=== PATIENT | male | born 1945 | race Asian ===

== ENCOUNTER 2018-10-13 11:08 | Inpatient (IN) | payer BC, MEDICARE ==
[2018-10-13] VITALS (23 sets, daily range): BP systolic 90–141; BP diastolic 57–82; PULSE 60–77; RESP 12–19; Ht 167.6 cm; Wt 72.0 kg
[~2018-10-13] VITALS: Ht 167.6 cm; Wt 72.0 kg
[~2018-10-13 11:08] MED LIST: ETOMIDATE 20 MG INJ ONE
[2018-10-13] MEDS ORDERED: NITROGLYCERIN 50 MG/D5W (PMX) 250 ML ONE (11:10)
[2018-10-13] MEDS ORDERED: NITROGLYCERIN (SL) 0.4 MG TAB ONE (11:15)
[2018-10-13] MEDS ORDERED: PROPOFOL 100 ML ONE (11:27)
[2018-10-13] MEDS ORDERED: NITROGLYCERIN 50 MG/D5W (PMX) 250 ML IV STA (11:29)
[2018-10-13] MEDS ORDERED: PROPOFOL 100 ML IV STA (11:29)
[2018-10-13] MEDS ORDERED: ALBUTEROL 0.5% (NEB) 2.5 MG/0.5 ML AMP INH STA (11:29)
[2018-10-13] MEDS ORDERED: ETOMIDATE 20 MG INJ IV STA (11:29)
[2018-10-13] MEDS ORDERED: ROCURONIUM 50 MG INJ IV STA (11:29)
[2018-10-13] MEDS ORDERED: NITROGLYCERIN (SL) 0.4 MG TAB SL PRN (11:30)
[2018-10-13] MEDS ORDERED: PENT400T9 PO (11:51)
[2018-10-13] MEDS ORDERED: FURO40TA4 PO (11:51)
[2018-10-13] MEDS ORDERED: ATOR-2 PO (11:52)
[2018-10-13] MEDS ORDERED: CARV6.2579 PO (11:52)
[2018-10-13] MEDS ORDERED: ALBU8.5H8 INH (11:52)
[2018-10-13] MEDS ORDERED: CLOP75TA27 PO (11:53)
[2018-10-13] MEDS ORDERED: CILO100T PO (11:53)
[2018-10-13] MEDS ORDERED: ALLO100T PO (11:54)
[2018-10-13] MEDS ORDERED: POTA10TA37 PO (11:54)
[2018-10-13] MEDS ORDERED: LEVO88TA42 PO (11:55)
[2018-10-13] MEDS ORDERED: TAMS0.4C2 PO (11:55)
[2018-10-13] MEDS ORDERED: PIPER-TAZO 3.375 GM IV (PMX) 100 ML IVPB ONE (12:00)
[2018-10-13] MEDS ORDERED: VANCOMYCIN 1 GM (PMX) 250 ML IVPB ONE (12:00)
[2018-10-13] MEDS ORDERED: SOD CHLORIDE 0.9% 2,250 ML IV ONE (12:00)
[2018-10-13] MEDS ORDERED: LIDOCAINE 1% (MPF) 5 ML VIAL SC ONE (12:30)
--- NOTE | 2018-10-13 13:02 | ERD ---
ER Documentation Chief Complaint Chief Complaint BIB RA FOR EVAL OF RESPIRATORY DISTRESS. CPAP PLACED BY EMS HPI 73-year-old male presents the emergency department with shortness of breath. Patient arrives in critical condition unable to provide any significant history. History is initially available for the paramedics and later in the emergency department course from the patient's family. According to the family, patient was in his usual state of health which is to say that he has chronic congestive heart failure. He has been placed on "water pills" and has been apparently been doing well up until the last 24-48 hours. H e became acutely short of breath this morning. He reported no chest pain or fevers or hemoptysis or cough. The paramedics were called after he continued to be short of breath. 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 Pre-hospital vital signs were reviewed. Pre-hospital diagnostic tests were reviewed. Method Consultant's indicated that he was significantly hypoxemic. He required albuterol for wheezing and then BiPAP and was brought to the emergency department for evaluation. Upon arrival, patient is critically ill and unable to provide any further history. ROS All systems reviewed and are negative except as per history of present illness. Medications Home Meds Reported Medications Tamsulosin Hcl* (Tamsulosin Hcl*) 0.4 Mg Cap.er.24h, 0.4 MG PO HS, CAP 10/13/18 Levothyroxine Sodium* (Levoxyl*) 88 Mcg Tablet, 88 MCG PO BEFORE BREAKFAST, #30 TAB 10/13/18 Potassium Chloride* (K-Dur*) 10 Meq Tab.prt.sr, 10 MEQ PO DAILY, TAB 10/13/18 Allopurinol* (Allopurinol*) 100 Mg Tablet, 100 MG PO DAILY, TAB 10/13/18 Clopidogrel Bisulfate (Clopidogrel) 75 Mg Tablet, 75 MG PO DAILY, #30 TAB 10/13/18 Cilostazol* (Cilostazol*) 100 Mg Tablet, 100 MG PO BID, TAB 10/13/18 Atorvastatin* (Atorvastatin*) 80 Mg Tablet, 80 MG PO QHS, #30 TAB 10/13/18 Carvedilol* (Carvedilol*) 6.25 Mg Tablet, 6.25 MG PO BID, #60 TAB 10/13/18 Albuterol Sulfate* (Proair HFA*) 8.5 Gm Hfa.aer.ad, 2 PUFF INH Q6H PRN for WHEEZING AND SOB, #1 INHALER 10/13/18 Furosemide* (Furosemide*) 40 Mg Tablet, 40 MG PO DAILY, TAB 10/13/18 Pentoxifylline* (Pentoxifylline*) 400 Mg Tablet.sa, 400 MG PO TID, TAB 10/13/18 Allergies Allergies: Coded Allergies: Unknown: Unable to obtain (Unverified , 10/13/18) PMhx/Soc Anesthesia Reaction: No Hx Respiratory Disorders: Yes (COPD) Hx Cardiac Disorders: Yes (CHF ? on Lasix) Hx Psychiatric Problems: No Hx Miscellaneous Medical Probl: No Hx Tobacco Use: Yes Smoking Status: Current every day smoker FmHx Supportive family at the bedside. Otherwise noncontributory for chief complaint Physical Exam Vitals Vital Signs Date Temp Pulse Resp B/P (MAP) Pulse Ox O2 O2 Flow FiO2 Time Delivery Rate 10/13/18 76 20 129/72 100 Mechanical 11:30 (91) Ventilator 10/13/18 94.3 89 25 180/100 11:10 (126) Physical Exam GENERAL: Critically ill male who arrives in respiratory failure HEENT: Pupils equal, round, and reactive to light. EOMI. There is no scleral icterus. NECK: C-spine is soft and supple, there is no meningismus. There is no cervical lymphadenopathy. JVD is appreciated LUNGS: Significantly decreased tidal volume. Wheezing bilaterally. There are rales bilaterally. Significant increased respiratory effort HEART: Regular rate and rhythm, no murmurs, clicks, rubs or gallops. ABDOMEN: Soft, non-tender, non-distended. There are bowel sounds in all four quadrants. No rebound or guarding. EXTREMITIES: 1+ edema bilaterally no cyanosis NEURO: The patient moves all four extremities with 5/5 strength. Cranial nerves II - XII are intact. Awake but confused and encephalopathic SKIN: There is no apparent rash or petechiae. Skin is mottled HEME/LYMPHATIC: There is no evidence of excessive bruising or lymphedema. PSYCHIATRIC: The patient does appear anxious Result Diagram: 10/13/18 1116 10/13/18 1116 Results 24 hrs Laboratory Tests Test 10/13/18 11:16 10/13/18 11:29 10/13/18 11:57 White Blood Count 10.5 10^3/ul Red Blood Count 4.73 10^6/ul Hemoglobin 14.8 g/dl Hematocrit 47.0 % Mean Corpuscular Volume 99.4 fl Mean Corpuscular 31.3 pg Hemoglobin Mean Corpuscular 31.5 g/dl Hemoglobin Concent Red Cell Distribution 14.2 % Width Platelet Count 204 10^3/UL Mean Platelet Volume 10.5 fl Immature Granulocytes % 0.500 % Neutrophils % 74.4 % Lymphocytes % 17.3 % Monocytes % 7.4 % Eosinophils % 0.1 % Basophils % 0.3 % Nucleated Red Blood Cells 0.0 /100WBC % Immature Granulocytes # 0.050 10^3/ul Neutrophils # 7.8 10^3/ul Lymphocytes # 1.8 10^3/ul Monocytes # 0.8 10^3/ul Eosinophils # 0.0 10^3/ul Basophils # 0.0 10^3/ul Nucleated Red Blood Cells 0.0 10^3/ul # Prothrombin Time 16.8 Sec Prothrombin Time Ratio 1.3 INR International 1.35 Normalized Ratio Activated 31.6 Sec Partial Thromboplast Time Sodium Level 136 mmol/L Potassium Level 5.8 mmol/L Chloride Level 100 mmol/L Carbon Dioxide Level 17 mmol/L Anion Gap 19 Blood Urea Nitrogen 53 mg/dl Creatinine 2.13 mg/dl Est Glomerular Filtrat mL/min Rate mL/min Glucose Level 76 mg/dl Calcium Level 9.9 mg/dl Total Bilirubin 0.6 mg/dl Direct Bilirubin 0.00 mg/dl Indirect Bilirubin 0.6 mg/dl Aspartate Amino 223 IU/L Transf (AST/SGOT) Alanine 99 IU/L Aminotransferase (ALT/SGPT ) Alkaline Phosphatase 67 IU/L Troponin I 0.104 ng/ml B-Type Natriuretic Peptide 14303 PG/ML Total Protein 8.9 g/dl Albumin 5.1 g/dl Globulin 3.80 g/dl Albumin/Globulin Ratio 1.34 Blood Gas Specimen Source Blood arterial Arterial Blood Date Drawn 10/13/2018 11:50:14 AM Arterial Blood pH 7.068 (Temp corrected) Arterial Blood pCO2 56.9 mmhg (Temp correct) Arterial Blood pO2 471.5 mmHG (Temp corrected) Arterial Blood HCO3 16.0 mmol/L Arterial Blood Base Excess -14.6 mmol/L Arterial Blood 99.6 mmHG Oxygen Saturation Tommy Test ACCEPTAB Arterial Blood Gas Right Radial Puncture Site Arterial 0.7 % Blood Carboxyhemoglobin Arterial Blood 0.3 % Methemoglobin Blood Gas A-a O2 184.6 mmHg Differential Oxyhemoglobin Percent 98.6 % Blood Gas Temperature 37.0 C Blood Gas Respiration Rate 14.0 Blood Gas Actual 14 Respiration Rate Blood Gas Modality VENT - AC FiO2 100.0 % Blood Gas Tidal Volume 450.0 mL Blood Gas Low PEEP Setting 0 cmH2O Blood Gas Critical Value Magalys PLUMMER MD Read Back Blood Gas Notified Whom NEELA Blood Gas Notified Time 10/13/2018 11:58:19 AM POC Venous Lactate 7.4 mmol/L Current Medications Medications Dose Sig/John Start Time Status Last (Trade) Ordered Route PRN Stop Time Admin Dose Reason Admin Propofol 100 ml @ ud STK-MED 10/13/18 DC ONCE .ROUTE 11:27 10/13/18 11:28 Rocuronium 70 mg ONCE STAT 10/13/18 DC 10/13/18 [place] IV 11:29 11:40 (Zemuron) 10/13/18 11:33 Etomidate 20 mg ONCE STAT 10/13/18 DC 10/13/18 (Amidate) IV 11:29 11:40 10/13/18 11:33 Propofol 100 ml @ ONCE STAT 10/13/18 10/13/18 2.1 mls/hr IV 11:29 12:23 10/15/18 11:06 Albuterol 5 mg ONCE STAT 10/13/18 DC 10/13/18 (Proventil INH 11:29 12:30 0.5% (Neb)) 10/13/18 11:33 1 tab Q5M UP TO 3 10/13/18 10/13/18 Nitroglycerin DOSES PRN 11:30 11:15 SL CHEST (Nitroglyceri PAIN n (Sl Tab) 0.4 Mg) 250 ml @ ONCE STAT 10/13/18 10/13/18 Nitroglycerin 12 mls/hr IV 11:29 11:46 / Dextrose 10/14/18 08:18 Sodium 2,250 ml @ BOLUS X1 10/13/18 10/13/18 Chloride 1,125 mls/hr ONCE IV 12:00 12:23 10/13/18 13:59 Piperacillin 100 ml @ ONCE ONCE 10/13/18 DC 10/13/18 Sod/ 200 mls/hr IVPB 12:00 12:26 Tazobactam 10/13/18 12:29 Sod Vancomycin 250 ml @ ONCE ONCE 10/13/18 HCl 125 mls/hr IVPB 12:00 10/13/18 13:59 Lidocaine 5 ml ONCE ONCE 10/13/18 DC (Xylocaine SC 12:30 1% (Mpf)) 10/13/18 12:31 Procedures/MDM Patient was taken to a room, seen and evaluated. Comfort measures were initiated. BiPAP was continued from the paramedics and continued with preparation for intubation. Diagnostic tests were ordered and reviewed. Endotracheal Intubation by me: Pre assessment performed. See preceding note for details. Pre-oxygenation performed with 100% oxygen RSI: Performed w/o complication or hypoxic events. Medications as ordered. Intubation confirmed by colorimetric CO2, equal breath sounds, quiet over the stomach. Chest X-ray 1V Interpreted by me: ETT in appropriate position. Normal soft tissue, No pneumothorax. 3 LEAD RHYTHM STRIP: Normal sinus rhythm without ectopy Method Consultant EK lead EKG reviewed by myself: Normal Sinus Rhythm Left axis deviation, right bundle branch block No ST elevation, depression, or T wave inversion Impression: Abnormal, nonspecific EKG EKG repeated upon arrival: Normal sinus rhythm Left axis deviation Right bundle branch block Nonspecific ST and T wave changes without ST elevation Impression: Abnormal, nonspecific EKG RADIOLOGY: Reviewed with the radiologist CONSULTATION: Hospitalist was notified for admission REEVALUATION: After intubation, patient has stabilized from a respiratory standpoint. His heart rate improved. Saturations remained improved. Diagnostic tests were appreciated. A Baker catheter was placed and he drained urine. MEDICAL DECISION MAKIN-year-old male presents the emergency department in respiratory failure. Diagnostic evaluation seems to indicate a mixed picture of congestive heart failure as well as likely COPD. He has a mixed hypercarbia and a respiratory as well as metabolic acidosis. He may be septic with a severely elevated lactate and given his mottled appearance, he clearly presents not perfusing well. His shock seems to be multifactorial and may be related to his cardiopulmonary status and/or sepsis. He is required aggressive measures including intubation and I have continued IV fluids as well as empiric antibiotics for the possibility of sepsis/pneumonia. He has an elevated BNP and likely has some congestive heart failure, but given his hypoperfusion, I feel the fluids are appropriate. Patient will be admitted to the hospital for further observation, monitoring, IV fluids, empiric antibiotics as well as significant supportive care. CRITICAL CARE: Time:>35 minutes Patient has a significant chance of clinical deterioration Treatments/Evaluations: Close monitoring and treatment of unstable vital signs, cardiorespiratory, and neurologic status, while maintaining tight balance of fluid, respiratory, and cardiac interventions. Departure Diagnosis: Primary Impression: Respiratory failure Additional Impressions: Congestive heart failure Renal failure Shock Condition: Critical KERRIE PLUMMER Oct 13, 2018 13:02
[2018-10-13] MEDS ORDERED: SODIUM POLYSTYRENE 15 GM KIT (POWDER + SORBITOL) NGT ONE ×2 (15:00→17:00)
[2018-10-13] MEDS ORDERED: ONDANSETRON 4 MG INJ IV PRN (15:00)
[2018-10-13] MEDS ORDERED: NACL 0.9% 3 ML SYG IV SCH (15:00)
[2018-10-13] MEDS ORDERED: VANCOMYCIN IV PER PHARMACY XX SCH (15:30)
--- NOTE | 2018-10-13 15:36 | HP ---
Date/Time of Note Date/Time of Note DATE: 10/13/18 TIME: 14:49 Assessment/Plan VTE Prophylaxis SCD applied (from Nsg): Yes Pharmacological prophylaxis: heparin Lines/Catheters IV Catheter Type (from Nrsg): Saline Lock Assessment/Plan Assessment/Plan 73 yo man with CHF, history of AR, PAD, presents with acute respiratory failure #Acute respiratory failure - Acute onset over only a few hours. Associated with pulmonary edema but otherwise not much fluid overload. - Differential: PE, pneumonia, AR, CHF exacerbation, new COPD PE: Currently with NOHEMY so no CTPA. He has no contraindications to anticoagulation. Will check D-dimer, if elevated will consider heparin gtt. Sepsis: No lobar infiltrate on CXR. CT pending. Will empirically continue ACS: Initial trop negative (0.1), EKG with right bundle. Dr. Bennett consulted from [facility] (Patient's practical nurse clinical coordinator is Dr. Francisco Vernon). Will trend trops. Will continue ASA/plavix - Overall appears about euvolemic. Will hold off on further diuresis or IV fluids. - Pending CT. - Dr. Oleary from pulmonary consulted. #NOHEMY #CKD #Hyperkalemia - Current Cr 2.13, baseline 1.8 in 2017. May just be progression of CKD - Kayexalate for hyper K - Dr. Hunter consulted #PAD - Continue home cilostazol and pentoxifylline - No evidence of acute limb ischemia DVT: heparin GI: protonix Result Diagram: 10/13/18 1116 10/13/18 1116 HPI/ROS Admit Date/Time Admit Date/Time October 13, 2018 Hx of Present Illness Mr. Griggs is a 73 yo man with history of AR, CHF, and PAD BIBA from home for dyspnea. Patient intubated and sedated on my exam; history per and daughter. Apparently he was in his usual state of health until last night. He developed profuse sweating and had three episodes of diarrhea. But no shortness of breath, no orthopnea; was lying flat. Suddenly at 10:30 this morning he told his "I can't breathe", although he didn't appear to be in respiratory distress at the time. She asked about chest pain and he denied it. Also no cough. Ambulance was called and he was brought to the ED. At baseline patient is functional, ambulatory. He'd gone to a doctors appointm ent the day prior; no known changes to medications and no procedures done. History notable for AR about 3 years ago, had PCI with 2 or 3 stents placed. No open heart surgery. He also has severe peripheral arterial disease with a R femoral stent placed 2 months ago. He arrived to the ED on BiPAP in respiratory distress, afebrile, HTNsive to 180/100, P 70s-80s. Soon after arrival required intubation. CXR showed diffuse infiltrates or pulmonary edema. Labs notable for Cr 2.13 (no known baseline), K 5.8, lact 7.4, trop 0.104. ROS Subjective hx not possible: pt critical PMH/Family/Social Past Medical History PAD History of AR requiring stents 3 years ago CHF recently started on Lasix 3 weeks ago Hypothyroid Medications Current Medications Propofol 100 ml @ 2.1 mls/hr ONCE STAT IV Last administered on 10/13/18at 12:23; Admin Dose 4.2 MLS/HR; Start 10/13/18 at 11:29; Stop 10/15/18 at 11:06 Nitroglycerin (Nitroglycerin (Sl Tab) 0.4 Mg) 1 tab Q5M UP TO 3 DOSES PRN SL CHEST PAIN Last administered on 10/13/18at 11:15; Admin Dose 1 TAB; Start 10/13/18 at 11:30 Nitroglycerin/ Dextrose 250 ml @ 12 mls/hr ONCE STAT IV Last administered on 10/13/18at 11:46; Admin Dose 1.5 MLS/HR; Start 10/13/18 at 11:29; Stop 10/14/18 at 08:18 IV Flush (NS 3 ml) 3 ml PER PROTOCOL IV ; Start 10/13/18 at 15:00; Status UNV Ondansetron HCl (Zofran Inj) 4 mg Q6H PRN IV NAUSEA/VOMITING; Start 10/13/18 at 15:00; Status UNV Pantoprazole (Protonix Iv) 40 mg DAILY@06 IV ; Start 10/14/18 at 06:00; Status UNV Coded Allergies: Unknown: Unable to obtain (Unverified , 10/13/18) Past Surgical History R leg arterial stent 2 months ago Social History Alcohol Use: occasionally Smoking Status: Current every day smoker (rare, 1 pack every 2 weeks) Drug Use: none Exam/Review of Systems Vital Signs Vitals Vital Signs Date Temp Pulse Resp B/P (MAP) Pulse Ox O2 O2 Flow FiO2 Time Delivery Rate 10/13/18 95.0 65 12 127/77 100 Mechanical 14:00 (94) Ventilator 10/13/18 40 13:27 Exam Exam Gen: Elderly man well developed intubated, sedated. Eyes: Normal pupils nonreactive to light, no icterus HEENT: ET tube in place, moist mucous membranes Neck: JVP visible about 6-7 cm above sternal notch Card: Distant heart sounds. Regular rate and rhythm, cannot appreciate murmurs Pulm: Mechanical breath sounds throughout, no crackles or rales. Abd: Soft, nondistended. Ext: No cyanosis/clubbing/edema. Bilateral feet with <2 sec cap refill but poor peripheral pulses. Skin: warm, dry. PETER GLEASON MD Oct 13, 2018 15:04
[2018-10-13] MEDS: HEPARIN 5,000 UNIT/1 ML VIAL SC SCH ×2 (16:49→22:18)
[2018-10-13] MEDS ORDERED: INSULIN REGULAR, HUMAN 100 UNIT/1 ML 3ML VIAL IVP STA (17:06)
[2018-10-13] MEDS ORDERED: FUROSEMIDE 40 MG INJ IV ONE (17:30)
[2018-10-13] MEDS: PIPER-TAZO 2.25 GM (PMX) 50 ML IVPB SCH (17:30)
[2018-10-13] MEDS: PROPOFOL 100 ML IV SCH (18:24)
[2018-10-13] MEDS: ATORVASTATIN 80 MG TAB PO SCH (20:55)
[2018-10-13] MEDS: TAMSULOSIN (SR) 0.4 MG CAP PO SCH (20:55)
[2018-10-13] MEDS: CILOSTAZOL 100 MG TAB PO SCH (20:55)
[2018-10-13] MEDS ORDERED: PENTOXIFYLLINE (SR) 400 MG TAB PO SCH (21:00)
[2018-10-14] VITALS (43 sets, daily range): BP systolic 89–138; BP diastolic 57–86; PULSE 59–84; RESP 12–21
[2018-10-14] MEDS: PIPER-TAZO 2.25 GM (PMX) 50 ML IVPB SCH ×5 (00:59→23:33)
[2018-10-14] MEDS: PROPOFOL 100 ML IV SCH ×2 (00:59→10:33)
[2018-10-14] MEDS ORDERED: SOD CHLORIDE 0.9% 500 ML IV ONE (03:30)
[2018-10-14] MEDS ORDERED: SOD CHLORIDE 0.9% 1,000 ML IV ONE (05:00)
[2018-10-14] MEDS: PANTOPRAZOLE 40 MG INJ IV SCH (05:11)
[2018-10-14] MEDS: HEPARIN 5,000 UNIT/1 ML VIAL SC SCH ×2 (05:14→21:21)
[2018-10-14] MEDS ORDERED: VANCOMYCIN 1 GM 250 ML IVPB SCH (06:00)
[2018-10-14] MEDS ORDERED: ALBUTEROL 0.083% (NEB) 2.5 MG/3 ML AMP HHN STA (06:06)
[2018-10-14] MEDS ORDERED: INSULIN REGULAR, HUMAN 100 UNIT/1 ML 3ML VIAL IVP ONE (06:12)
[2018-10-14] MEDS: LEVOTHYROXINE 88 MCG TAB PO SCH (06:17)
[2018-10-14] MEDS ORDERED: SODIUM POLYSTYRENE 15 GM KIT (POWDER + SORBITOL) NGT ONE (06:30)
[2018-10-14] MEDS ORDERED: DEXTROSE 50% 50 ML SYRINGE IV PRN (06:30)
--- NOTE | 2018-10-14 06:30 | CONS ---
Consultation Date/Type/Reason Admit Date/Time October 13, 2018 Date/Time of Note DATE: 10/14/18 TIME: 06:28 Hx of Present Illness full note dictated 1. antionette- oliguric. likely atn. complicated by hyperkalemia. fu urine studies and ultrasound. will initiate dialysis for potassium while we continue to investigate. Past Medical History Home Meds Reported Medications Tamsulosin Hcl* (Tamsulosin Hcl*) 0.4 Mg Cap.er.24h, 0.4 MG PO HS, CAP 10/13/18 Levothyroxine Sodium* (Levoxyl*) 88 Mcg Tablet, 88 MCG PO BEFORE BREAKFAST, #30 TAB 10/13/18 Potassium Chloride* (K-Dur*) 10 Meq Tab.prt.sr, 10 MEQ PO DAILY, TAB 10/13/18 Allopurinol* (Allopurinol*) 100 Mg Tablet, 100 MG PO DAILY, TAB 10/13/18 Clopidogrel Bisulfate (Clopidogrel) 75 Mg Tablet, 75 MG PO DAILY, #30 TAB 10/13/18 Cilostazol* (Cilostazol*) 100 Mg Tablet, 100 MG PO BID, TAB 10/13/18 Atorvastatin* (Atorvastatin*) 80 Mg Tablet, 80 MG PO QHS, #30 TAB 10/13/18 Carvedilol* (Carvedilol*) 6.25 Mg Tablet, 6.25 MG PO BID, #60 TAB 10/13/18 Albuterol Sulfate* (Proair HFA*) 8.5 Gm Hfa.aer.ad, 2 PUFF INH Q6H PRN for WHEEZING AND SOB, #1 INHALER 10/13/18 Furosemide* (Furosemide*) 40 Mg Tablet, 40 MG PO DAILY, TAB 10/13/18 Pentoxifylline* (Pentoxifylline*) 400 Mg Tablet.sa, 400 MG PO TID, TAB 10/13/18 Medications Current Medications Nitroglycerin (Nitroglycerin (Sl Tab) 0.4 Mg) 1 tab Q5M UP TO 3 DOSES PRN SL CHEST PAIN Last administered on 10/13/18at 11:15; Admin Dose 1 TAB; Start 10/13/18 at 11:30 Nitroglycerin/ Dextrose 250 ml @ 12 mls/hr ONCE STAT IV Last administered on 10/13/18at 11:46; Admin Dose 1.5 MLS/HR; Start 10/13/18 at 11:29; Stop 10/14/18 at 08:18 IV Flush (NS 3 ml) 3 ml PER PROTOCOL IV ; Start 10/13/18 at 15:00 Ondansetron HCl (Zofran Inj) 4 mg Q6H PRN IV NAUSEA/VOMITING; Start 10/13/18 at 15:00 Pantoprazole (Protonix Iv) 40 mg DAILY@06 IV Last administered on 10/14/18at 05:11; Admin Dose 40 MG; Start 10/14/18 at 06:00 Vancomycin HCl (Vanco Iv Per Pharmacy) VANCOMYCIN PER PHARMACY PER PROTOCOL XX ; Start 10/13/18 at 15:30 Piperacillin Sod/ Tazobactam Sod 50 ml @ 100 mls/hr Q6 IVPB Last administered on 10/14/18 05:11; Admin Dose 100 MLS/HR; Start 10/13/18 at 18:00 Atorvastatin Calcium (Lipitor) 80 mg QHS PO Last administered on 10/13/18 20:5 5; Admin Dose 80 MG; Start 10/13/18 at 21:00 Carvedilol (Coreg) 6.25 mg BID PO Last administered on 10/13/18 20:55; Admin Dose 6.25 MG; Start 10/13/18 at 21:00 Cilostazol (Pletal) 100 mg BID PO Last administered on 10/13/18 20:55; Admin Dose 100 MG; Start 10/13/18 at 21:00 Clopidogrel Bisulfate (plaVIX) 75 mg DAILY PO ; Start 10/14/18 at 09:00 Levothyroxine Sodium (Synthroid) 88 mcg BEFORE BREAKFAST PO Last administered on 10/14/18at 06:17; Admin Dose 88 MCG; Start 10/14/18 at 07:00 Pentoxifylline (Trental) 400 mg TID PO ; Start 10/13/18 at 21:00; Status Hold Tamsulosin HCl (Flomax) 0.4 mg HS PO Last administered on 10/13/18 20:55; Admin Dose 0.4 MG; Start 10/13/18 at 21:00 Heparin Sodium (Porcine) (Heparin (5000 Units/1ml)) 5,000 unit Q8 SC Last administered on 10/14/18at 05:14; Admin Dose 5,000 UNIT; Start 10/13/18 at 16:00 Vancomycin HCl 250 ml @ 125 mls/hr Q24H IVPB Last administered on 10/14/18at 06:17; Admin Dose 125 MLS/HR; Start 10/14/18 at 06:00 Dextrose (D50w Syringe) ONCE PRN IV DECREASED GLUCOSE; Start 10/13/18 at 17:30; Stop 10/14/18 at 17:29 Propofol 100 ml @ 2.16 mls/hr Q12H IV Last administered on 10/14/18at 00:59; Admin Dose 15.12 MLS/HR; Start 10/13/18 at 18:00 Sodium Polystyrene Sulfonate (Kayexelate 15 Gm Kit (Powder+Sorbitol)) 60 gm ONCE ONCE NGT Last administered on 10/14/18at 06:20; Admin Dose 60 GM; Start 10/14/18 at 06:30; Stop 10/14/18 at 06:31 Dextrose (D50w Syringe) ONCE PRN IV DECREASED GLUCOSE; Start 10/14/18 at 06:30; Stop 10/14/18 at 08:30 Allergies: Coded Allergies: Unknown: Unable to obtain (Unverified , 10/13/18) Social History Alcohol Use: occasionally Smoking Status: Current every day smoker Drug Use: none Exam/Review of Systems Exam Vitals Vital Signs Date Temp Pulse Resp B/P (MAP) Pulse Ox O2 O2 Flow FiO2 Time Delivery Rate 10/14/18 66 17 100 30 05:00 10/14/18 97.8 106/65 Mechanical 04:00 (79) Ventilator Intake and Output 10/13/18 10/13/18 10/14/18 1414:59 22:59 06:59 IntakeIntake Total 1100 ml 239.88 ml 712.32 ml OutputOutput Total 280 ml 110 ml BalanceBalance 1100 ml -40.12 ml 602.32 ml Results Result Diagram: 10/14/1844710/14/18447 Results 24hrs Laboratory Tests Test 10/13/18 11:16 10/13/18 11:29 10/13/18 11:57 10/13/18 12:00 White Blood Count 10.5 Red Blood Count 4.73 Hemoglobin 14.8 Hematocrit 47.0 Mean Corpuscular 99.4 Volume Mean Corpuscular 31.3 Hemoglobin Mean Corpuscular 31.5 L Hemoglobin Concen t Red Cell 14.2 Distribution Width Platelet Count 204 Mean Platelet 10.5 H Volume Immature 0.500 H Granulocytes % Neutrophils % 74.4 Lymphocytes % 17.3 Monocytes % 7.4 Eosinophils % 0.1 Basophils % 0.3 Nucleated Red 0.0 Blood Cells % Immature 0.050 H Granulocytes # Neutrophils # 7.8 H Lymphocytes # 1.8 Monocytes # 0.8 Eosinophils # 0.0 Basophils # 0.0 Nucleated Red 0.0 Blood Cells # Prothrombin Time 16.8 H Prothrombin Time 1.3 Ratio INR International 1.35 Normalized Ratio Activated 31.6 Partial Thrombopl ast Time D-Dimer 1329.91 H D-Dimer Comment Sodium Level 136 Potassium Level 5.8 H Chloride Level 100 Carbon Dioxide 17 L Level Anion Gap 19 H Blood Urea 53 H Nitrogen Creatinine 2.13 H Est Glomerular Filtrat Rate mL/min Glucose Level 76 Calcium Level 9.9 Total Bilirubin 0.6 Direct Bilirubin 0.00 Indirect 0.6 Bilirubin Aspartate Amino 223 H Transf (AST/SGOT) Alanine 99 H Aminotransferase (ALT/SGPT) Alkaline 67 Phosphatase Troponin I 0.104 B-Type 18162 H Natriuretic Peptide Total Protein 8.9 H Albumin 5.1 H Globulin 3.80 H Albumin/Globulin 1.34 Ratio Blood Gas Blood arterial Specimen Source Arterial Blood 10/13/2018 11:50: Date Drawn 14 AM Arterial Blood pH 7.068 *L (Temp corrected) Arterial Blood 56.9 H pCO2 (Temp correct) Arterial Blood 471.5 H pO2 (Temp corrected) Arterial Blood 16.0 L HCO3 Arterial Blood -14.6 L Base Excess Arterial Blood 99.6 Oxygen Saturation Tommy Test ACCEPTAB Arterial Blood Right Radial Gas Puncture Site Arterial 0.7 Blood Carboxyhemo globin Arterial Blood 0.3 Methemoglobin Blood Gas A-a O2 184.6 H Differential Oxyhemoglobin 98.6 Percent Blood Gas 37.0 Temperature Blood Gas 14.0 Respiration Rate Blood Gas Actual 14 Respiration Rate Blood Gas VENT - AC Modality FiO2 100.0 Blood Gas Tidal 450.0 Volume Blood Gas Low 0 PEEP Setting Blood Gas Magalys PLUMMER MD Critical Value Read Back Blood Gas NZAKERI Notified Whom Blood Gas 10/13/2018 11:58: Notified Time 19 AM POC Venous 7.4 *H Lactate Urine Color YELLOW Urine Clarity CLEAR Urine pH 5.0 Urine Specific 1.016 [place] Urine Ketones NEGATIVE Urine Nitrite NEGATIVE Urine Bilirubin NEGATIVE Urine NEGATIVE Urobilinogen Urine Leukocyte NEGATIVE Esterase Urine Eosinophils 0.0 % Urine Hemoglobin NEGATIVE Urine Random 124.08 Creatinine Urine Random < 13 L Sodium Urine Glucose NEGATIVE Urine Total NEGATIVE Protein Test 10/13/18 14:02 10/13/18 15:58 10/13/18 17:19 10/13/18 18:23 POC Venous 3.6 *H Lactate Sodium Level 137 Potassium Level 6.5 *H Chloride Level 102 Carbon Dioxide 21 Level Anion Gap 14 H Blood Urea 59 H Nitrogen Creatinine 2.26 H Est Glomerular Filtrat Rate mL/min Glucose Level 80 Lactic Acid Level 3.1 *H Calcium Level 9.7 Troponin I 0.096 Bedside Glucose 114 110 Test 10/13/18 20:40 10/14/18 04:48 10/14/18 06:05 Sodium Level 137 132 L Potassium Level 5.2 H 6.7 *H Chloride Level 102 99 Carbon Dioxide 23 22 Level Anion Gap 12 11 White Blood Count 12.4 H Red Blood Count 4.24 L Hemoglobin 13.2 L Hematocrit 40.7 L Mean Corpuscular 96.0 Volume Mean Corpuscular 31.1 Hemoglobin Mean Corpuscular 32.4 Hemoglobin Concen t Red Cell 14.0 Distribution Width Platelet Count 170 Mean Platelet 10.6 H Volume Immature 0.300 Granulocytes % Neutrophils % 81.0 H Lymphocytes % 8.5 L Monocytes % 9.7 Eosinophils % 0.2 Basophils % 0.3 Nucleated Red 0.2 H Blood Cells % Immature 0.040 H Granulocytes # Neutrophils # 10.1 H Lymphocytes # 1.1 Monocytes # 1.2 H Eosinophils # 0.0 Basophils # 0.0 Nucleated Red 0.0 Blood Cells # Blood Urea 64 H Nitrogen Creatinine 2.60 H Est Glomerular Filtrat Rate mL/min Glucose Level 66 #L Hemoglobin A1c 5.3 Calcium Level 9.0 Phosphorus Level 7.4 H Magnesium Level 2.2 Total Bilirubin 0.1 L Direct Bilirubin 0.00 Indirect 0.1 Bilirubin Aspartate Amino 116 H Transf (AST/SGOT) Alanine 121 H Aminotransferase (ALT/SGPT) Alkaline 65 Phosphatase Total Protein 6.2 # Albumin 3.4 # Globulin 2.80 Albumin/Globulin 1.21 Ratio Thyroid 15.500 H Stimulating Hormone (TSH) Bedside Glucose 62 L Medications Medication Current Medications Nitroglycerin (Nitroglycerin (Sl Tab) 0.4 Mg) 1 tab Q5M UP TO 3 DOSES PRN SL CHEST PAIN Last administered on 10/13/18 11:15; Admin Dose 1 TAB; Start 10/13/18 at 11:30 Nitroglycerin/ Dextrose 250 ml @ 12 mls/hr ONCE STAT IV Last administered on 10/13/18 11:46; Admin Dose 1.5 MLS/HR; Start 10/13/18 at 11:29; Stop 10/14/18 at 08:18 IV Flush (NS 3 ml) 3 ml PER PROTOCOL IV ; Start 10/13/18 at 15:00 Ondansetron HCl (Zofran Inj) 4 mg Q6H PRN IV NAUSEA/VOMITING; Start 10/13/18 at 15:00 Pantoprazole (Protonix Iv) 40 mg DAILY@06 IV Last administered on 10/14/18 05:11; Admin Dose 40 MG; Start 10/14/18 at 06:00 Vancomycin HCl (Vanco Iv Per Pharmacy) VANCOMYCIN PER PHARMACY PER PROTOCOL XX ; Start 10/13/18 at 15:30 Piperacillin Sod/ Tazobactam Sod 50 ml @ 100 mls/hr Q6 IVPB Last administered on 10/14/18 05:11; Admin Dose 100 MLS/HR; Start 10/13/18 at 18:00 Atorvastatin Calcium (Lipitor) 80 mg QHS PO Last administered on 10/13/18at 20:55; Admin Dose 80 MG; Start 10/13/18 at 21:00 Carvedilol (Coreg) 6.25 mg BID PO Last administered on 10/13/18at 20:55; Admin Dose 6.25 MG; Start 10/13/18 at 21:00 Cilostazol (Pletal) 100 mg BID PO Last administered on 10/13/18 20:55; Admin D ose 100 MG; Start 10/13/18 at 21:00 Clopidogrel Bisulfate (plaVIX) 75 mg DAILY PO ; Start 10/14/18 at 09:00 Levothyroxine Sodium (Synthroid) 88 mcg BEFORE BREAKFAST PO Last administered on 10/14/18 06:17; Admin Dose 88 MCG; Start 10/14/18 at 07:00 Pentoxifylline (Trental) 400 mg TID PO ; Start 10/13/18 at 21:00; Status Hold Tamsulosin HCl (Flomax) 0.4 mg HS PO Last administered on 10/13/18at 20:55; Admin Dose 0.4 MG; Start 10/13/18 at 21:00 Heparin Sodium (Porcine) (Heparin (5000 Units/1ml)) 5,000 unit Q8 SC Last administered on 10/14/18at 05:14; Admin Dose 5,000 UNIT; Start 10/13/18 at 16:00 Vancomycin HCl 250 ml @ 125 mls/hr Q24H IVPB Last administered on 10/14/18at 06:17; Admin Dose 125 MLS/HR; Start 10/14/18 at 06:00 Dextrose (D50w Syringe) ONCE PRN IV DECREASED GLUCOSE; Start 10/13/18 at 17:30; Stop 10/14/18 at 17:29 Propofol 100 ml @ 2.16 mls/hr Q12H IV Last administered on 10/14/18at 00:59; Admin Dose 15.12 MLS/HR; Start 10/13/18 at 18:00 Sodium Polystyrene Sulfonate (Kayexelate 15 Gm Kit (Powder+Sorbitol)) 60 gm ONCE ONCE NGT Last administered on 10/14/18at 06:20; Admin Dose 60 GM; Start 10/14/18 at 06:30; Stop 10/14/18 at 06:31 Dextrose (D50w Syringe) ONCE PRN IV DECREASED GLUCOSE; Start 10/14/18 at 06:30; Stop 10/14/18 at 08:30 RENU QUINONEZ MD Oct 14, 2018 06:30
[2018-10-14] MEDS: DEXTROSE 50% 50 ML SYRINGE IV PRN ×3 (06:52→08:03)
[2018-10-14] MEDS ORDERED: DEXTROSE 10% 1,000 ML IV SCH (07:30)
[2018-10-14] MEDS ORDERED: HEPARIN 1000 UNITS/ML 10 ML INJ IV PRN ×2 (09:00)
[2018-10-14] MEDS ORDERED: HEPARIN 25000 UNITS/250 ML 250 ML IV SCH (09:00)
[2018-10-14] MEDS: CLOPIDOGREL 75 MG TAB PO SCH (09:44)
[2018-10-14] MEDS: CILOSTAZOL 100 MG TAB PO SCH ×2 (09:46→21:19)
--- NOTE | 2018-10-14 10:49 | CONS ---
Assessment/Plan Assessment/Plan Hospital Course (Demo Recall) 73 yom w/ CAD (hx of AWMI, PCI of LAD ~ 3 yrs ago), ICM, CKD (creatinine 1.8 in 2017), COPD, PAD (s/p SFA stent) and other issues who presented with respiratory distress. Etiology of respiratory distress is not clear. No evidence of ACS (troponin is negative x 2). Difficult to assess volume status on exam (currently intubated). He does not appear grossly intravascularly overloaded, though would note BNP is markedly elevated (though not clear what baseline BNP is). May be multi-factorial and may have a component of volume overload in addition to a respiratory infection and COPD exacerbation, but it will be difficult to diuresis him with his worsen kidney function. Will review echo. Continue aspirin and plavix. Contniue coreg (as bp allows) and statin. (PE is also on differential. CTA can't be done b/c CKD. If lung clear on CXR, can consider a V/Q scan). Addendum - Echo reveals EF 25% with moderate to severe MR. This EF is slightly worse that reported baseline (30-35%). Pt should be on an afterload reducing agent. Since he likely cannot tolerate an ARB b/c his CKD, would add hydralazine 10mg TID (as bp allows). This would help optimize he hemodynamics (provided he doesn't develop septic shock). Would not titrate up his coreg at this time. Spent 35 min of critical care time evaluating pt, reviewing data, talking w/ staff Consultation Date/Type/Reason Admit Date/Time October 13, 2018 Type of Consult Cardiology Reason for Consultation respiratory failure, hx of CAD Date/Time of Note DATE: 10/14/18 TIME: 10:49 Hx of Present Illness 73 yom w/ CAD (hx of AWMI, PCI of LAD ~ 3 yrs ago), ICM, COPD, CKD (creatinine 1.8 in 2017), PAD (s/p SFA stent) and other issues who presented with respiratory distress. Pt is intubated, so history is obtained via the chart. Pt had diaphoresis and diarrhea the night prior to admission. The morning of admission he awoke with respiratory distress. He soon required intubation after arrival. His creatinine is elevated. Pt's troponin is negative. He is hemodynamically stable. Rhythm is sinus. He remains on low FiO2. Pt was seen by Dr. Sosa on 10/04/18, and he was doing well from a cardiac standpoint per that clinic note. Pt denied any cp, sob or MEADE at that time. Per clinic note, creatinine in 2017 was 1.8. Pt had a peripheral intervention (details unclear of who and where) a few months ago. Suspect his kidney function worsen after that intervention. Past Medical History CAD ICM PAD CKD Home Meds Reported Medications Tamsulosin Hcl* (Tamsulosin Hcl*) 0.4 Mg Cap.er.24h, 0.4 MG PO HS, CAP 10/13/18 Levothyroxine Sodium* (Levoxyl*) 88 Mcg Tablet, 88 MCG PO BEFORE BREAKFAST, #30 TAB 10/13/18 Potassium Chloride* (K-Dur*) 10 Meq Tab.prt.sr, 10 MEQ PO DAILY, TAB 10/13/18 Allopurinol* (Allopurinol*) 100 Mg Tablet, 100 MG PO DAILY, TAB 10/13/18 Clopidogrel Bisulfate (Clopidogrel) 75 Mg Tablet, 75 MG PO DAILY, #30 TAB 10/13/18 Cilostazol* (Cilostazol*) 100 Mg Tablet, 100 MG PO BID, TAB 10/13/18 Atorvastatin* (Atorvastatin*) 80 Mg Tablet, 80 MG PO QHS, #30 TAB 10/13/18 Carvedilol* (Carvedilol*) 6.25 Mg Tablet, 6.25 MG PO BID, #60 TAB 10/13/18 Albuterol Sulfate* (Proair HFA*) 8.5 Gm Hfa.aer.ad, 2 PUFF INH Q6H PRN for WHEEZING AND SOB, #1 INHALER 10/13/18 Furosemide* (Furosemide*) 40 Mg Tablet, 40 MG PO DAILY, TAB 10/13/18 Pentoxifylline* (Pentoxifylline*) 400 Mg Tablet.sa, 400 MG PO TID, TAB 10/13/18 Medications Current Medications Nitroglycerin (Nitroglycerin (Sl Tab) 0.4 Mg) 1 tab Q5M UP TO 3 DOSES PRN SL CHEST PAIN Last administered on 10/13/18at 11:15; Admin Dose 1 TAB; Start 10/13/18 at 11:30 IV Flush (NS 3 ml) 3 ml PER PROTOCOL IV ; Start 10/13/18 at 15:00 Ondansetron HCl (Zofran Inj) 4 mg Q6H PRN IV NAUSEA/VOMITING; Start 10/13/18 at 15:00 Pantoprazole (Protonix Iv) 40 mg DAILY@06 IV Last administered on 10/14/18 05:11; Admin Dose 40 MG; Start 10/14/18 at 06:00 Vancomycin HCl (Vanco Iv Per Pharmacy) VANCOMYCIN PER PHARMACY PER PROTOCOL XX ; Start 10/13/18 at 15:30 Piperacillin Sod/ Tazobactam Sod 50 ml @ 100 mls/hr Q6 IVPB Last administered on 10/14/18 05:11; Admin Dose 100 MLS/HR; Start 10/13/18 at 18:00 Atorvastatin Calcium (Lipitor) 80 mg QHS PO Last administered on 10/13/18 20:55; Admin Dose 80 MG; Start 10/13/18 at 21:00 Carvedilol (Coreg) 6.25 mg BID PO Last administered on 10/14/18 09:45; Admin Dose 6.25 MG; Start 10/13/18 at 21:00 Cilostazol (Pletal) 100 mg BID PO Last administered on 10/14/18 09:46; Admin Dose 100 MG; Start 10/13/18 at 21:00 Clopidogrel Bisulfate (plaVIX) 75 mg DAILY PO Last administered on 10/14/18 09:44; Admin Dose 75 MG; Start 10/14/18 at 09:00 Levothyroxine Sodium (Synthroid) 88 mcg BEFORE BREAKFAST PO Last administered on 10/14/18 06:17; Admin Dose 88 MCG; Start 10/14/18 at 07:00 Pentoxifylline (Trental) 400 mg TID PO ; Start 10/13/18 at 21:00; Status Hold Tamsulosin HCl (Flomax) 0.4 mg HS PO Last administered on 10/13/18 20:55; Admin Dose 0.4 MG; Start 10/13/18 at 21:00 Vancomycin HCl 250 ml @ 125 mls/hr Q24H IVPB Last administered on 10/14/18 06:17; Admin Dose 125 MLS/HR; Start 10/14/18 at 06:00 Dextrose (D50w Syringe) ONCE PRN IV DECREASED GLUCOSE Last administered on 2/24/19at 08:03; Admin Dose 50 ML; Start 10/13/18 at 17:30; Stop 10/14/18 at 17:29 Propofol 100 ml @ 2.16 mls/hr Q12H IV Last administered on 10/14/18at 10:33; Admin Dose 8.64 MLS/HR; Start 10/13/18 at 18:00 Heparin Sodium (Porcine) (Heparin (1000 Units/ml)) 5,800 unit PER PROTOCOL PRN IV aPTT<47; Start 10/14/18 at 09:00 Heparin Sodium (Porcine) (Heparin (1000 Units/ml)) 2,900 unit PER PROTOCOL PRN IV aPTT<47-57; Start 10/14/18 at 09:00 Heparin Sodium (Porcine) 250 ml @ 13 mls/hr PER PROTOCOL IV ; Start 10/14/18 at 09:00 Allergies: Coded Allergies: Unknown: Unable to obtain (Unverified , 10/13/18) Social History Alcohol Use: occasionally Smoking Status: Current every day smoker Drug Use: none Exam/Review of Systems Vital Signs Vitals Vital Signs Date Temp Pulse Resp B/P (MAP) Pulse Ox O2 O2 Flow FiO2 Time Delivery Rate 10/14/18 64 08:00 10/14/18 17 100 30 07:28 10/14/18 138/65 Mechanical 07:00 (89) Ventilator 10/14/18 97.8 04:00 Intake and Output 10/13/18 10/13/18 10/14/18 1515:00 23:00 07:00 IntakeIntake Total 1100 ml 255.00 ml 710.16 ml OutputOutput Total 310 ml 125 ml BalanceBalance 1100 ml -55.00 ml 585.16 ml Exam Exam intubated and sedated Constitutional: other (sedated) Neck: other (supple, difficult to assess JVP) Respiratory: other (mostly clear anteriorly, decrease BS at bases) Cardiovascular: regular rate and rhythm; No murmurs/extra sounds Gastrointestinal: soft Neurological: other (sedated) Labs Result Diagram: 10/14/18 0816 10/14/18 0816 Results 24hrs Laboratory Tests Test 10/13/18 11:16 10/13/18 11:29 10/13/18 11:57 10/13/18 12:00 White Blood 10.5 Count Red Blood Count 4.73 Hemoglobin 14.8 Hematocrit 47.0 Mean Corpuscular 99.4 Volume Mean Corpuscular 31.3 Hemoglobin Mean Corpuscular 31.5 L Hemoglobin Brie nt Red Cell 14.2 Distribution Width Platelet Count 204 Mean Platelet 10.5 H Volume Immature 0.500 H Granulocytes % Neutrophils % 74.4 Lymphocytes % 17.3 Monocytes % 7.4 Eosinophils % 0.1 Basophils % 0.3 Nucleated Red 0.0 Blood Cells % Immature 0.050 H Granulocytes # Neutrophils # 7.8 H Lymphocytes # 1.8 Monocytes # 0.8 Eosinophils # 0.0 Basophils # 0.0 Nucleated Red 0.0 Blood Cells # Prothrombin Time 16.8 H Prothrombin Time 1.3 Ratio INR 1.35 International Normalized Ratio Activated 31.6 Partial Thrombop last Time D-Dimer 1329.91 H D-Dimer Comment Sodium Level 136 Potassium Level 5.8 H Chloride Level 100 Carbon Dioxide 17 L Level Anion Gap 19 H Blood Urea 53 H Nitrogen Creatinine 2.13 H Est Glomerular Filtrat Rate mL/min Glucose Level 76 Calcium Level 9.9 Total Bilirubin 0.6 Direct Bilirubin 0.00 Indirect 0.6 Bilirubin Aspartate Amino 223 H Transf (AST/SGOT ) Alanine 99 H Aminotransferase (ALT/SGPT) Alkaline 67 Phosphatase Troponin I 0.104 B-Type 81231 H Natriuretic Peptide Total Protein 8.9 H Albumin 5.1 H Globulin 3.80 H Albumin/Globulin 1.34 Ratio Blood Gas Blood arterial Specimen Source Arterial Blood 10/13/2018 11:50 Date Drawn :14 AM Arterial Blood 7.068 *L pH (Temp corrected) Arterial Blood 56.9 H pCO2 (Temp correct) Arterial Blood 471.5 H pO2 (Temp corrected) Arterial Blood 16.0 L HCO3 Arterial Blood -14.6 L Base Excess Arterial Blood 99.6 Oxygen Saturatio n Tommy Test ACCEPTAB Arterial Blood Right Radial Gas Puncture Site Arterial 0.7 Blood Carboxyhem oglobin Arterial Blood 0.3 Methemoglobin Blood Gas A-a O2 184.6 H Differential Oxyhemoglobin 98.6 Percent Blood Gas 37.0 Temperature Blood Gas 14.0 Respiration Rate Blood Gas Actual 14 Respiration Rate Blood Gas VENT - AC Modality FiO2 100.0 Blood Gas Tidal 450.0 Volume Blood Gas Low 0 PEEP Setting Blood Gas Magalys PLUMMER MD Critical Value Read Back Blood Gas NZAKERI Notified Whom Blood Gas 10/13/2018 11:58 Notified Time :19 AM POC Venous 7.4 *H Lactate Urine Color YELLOW Urine Clarity CLEAR Urine pH 5.0 Urine Specific 1.016 [place] Urine Ketones NEGATIVE Urine Nitrite NEGATIVE Urine Bilirubin NEGATIVE Urine NEGATIVE Urobilinogen Urine Leukocyte NEGATIVE Esterase Urine 0.0 Eosinophils % Urine Hemoglobin NEGATIVE Urine Random 124.08 Creatinine Urine Random < 13 L Sodium Urine Glucose NEGATIVE Urine Total NEGATIVE Protein Test 10/13/18 14:02 10/13/18 15:58 10/13/18 17:19 10/13/18 18:23 POC Venous 3.6 *H Lactate Sodium Level 137 Potassium Level 6.5 *H Chloride Level 102 Carbon Dioxide 21 Level Anion Gap 14 H Blood Urea 59 H Nitrogen Creatinine 2.26 H Est Glomerular Filtrat Rate mL/min Glucose Level 80 Lactic Acid 3.1 *H Level Calcium Level 9.7 Troponin I 0.096 Bedside Glucose 114 110 Test 10/13/18 20:40 10/14/18 04:48 10/14/18 06:05 10/14/18 06:51 Sodium Level 137 132 L Potassium Level 5.2 H 6.7 *H Chloride Level 102 99 Carbon Dioxide 23 22 Level Anion Gap 12 11 White Blood 12.4 H Count Red Blood Count 4.24 L Hemoglobin 13.2 L Hematocrit 40.7 L Mean Corpuscular 96.0 Volume Mean Corpuscular 31.1 Hemoglobin Mean Corpuscular 32.4 Hemoglobin Brie nt Red Cell 14.0 Distribution Width Platelet Count 170 Mean Platelet 10.6 H Volume Immature 0.300 Granulocytes % Neutrophils % 81.0 H Lymphocytes % 8.5 L Monocytes % 9.7 Eosinophils % 0.2 Basophils % 0.3 Nucleated Red 0.2 H Blood Cells % Immature 0.040 H Granulocytes # Neutrophils # 10.1 H Lymphocytes # 1.1 Monocytes # 1.2 H Eosinophils # 0.0 Basophils # 0.0 Nucleated Red 0.0 Blood Cells # Blood Urea 64 H Nitrogen Creatinine 2.60 H Est Glomerular Filtrat Rate mL/min Glucose Level 66 #L Hemoglobin A1c 5.3 Calcium Level 9.0 Phosphorus Level 7.4 H Magnesium Level 2.2 Total Bilirubin 0.1 L Direct Bilirubin 0.00 Indirect 0.1 Bilirubin Aspartate Amino 116 H Transf (AST/SGOT ) Alanine 121 H Aminotransferase (ALT/SGPT) Alkaline 65 Phosphatase Total Protein 6.2 # Albumin 3.4 # Globulin 2.80 Albumin/Globulin 1.21 Ratio Thyroid 15.500 H Stimulating Hormone (TSH) Bedside Glucose 62 L 49 *L Test 10/14/18 07:04 10/14/18 07:11 10/14/18 07:57 10/14/18 08:16 Blood Gas Blood arterial Specimen Source Arterial Blood 10/14/2018 7:49: Date Drawn 09 AM Arterial Blood 7.319 L pH (Temp corrected) Arterial Blood 35.3 pCO2 (Temp correct) Arterial Blood 84.5 pO2 (Temp corrected) Arterial Blood 17.7 L HCO3 Arterial Blood -7.5 L Base Excess Arterial Blood 94.3 L Oxygen Saturatio n Tommy Test ACCEPTAB Arterial Blood Right Radial Gas Puncture Site Arterial 0.8 Blood Carboxyhem oglobin Arterial Blood 0.3 Methemoglobin Blood Gas A-a O2 87.9 H Differential Oxyhemoglobin 93.3 Percent Blood Gas 37.0 Temperature Blood Gas 12.0 Respiration Rate Blood Gas Actual 15 Respiration Rate Blood Gas VENT - AC Modality FiO2 30.0 Blood Gas Tidal 450.0 Volume Blood Gas Low 5.0 PEEP Setting Blood Gas DT Notified Whom Blood Gas 10/14/2018 8:12: Notified Time 45 AM Bedside Glucose 40 *L 41 *L White Blood 10.4 Count Red Blood Count 4.03 L Hemoglobin 12.7 L Hematocrit 39.2 L Mean Corpuscular 97.3 Volume Mean Corpuscular 31.5 Hemoglobin Mean Corpuscular 32.4 Hemoglobin Brie nt Red Cell 14.0 Distribution Width Platelet Count 147 Mean Platelet 10.0 Volume Immature 0.400 Granulocytes % Neutrophils % 90.4 H Lymphocytes % 5.2 L Monocytes % 3.8 Eosinophils % 0.0 Basophils % 0.2 Nucleated Red 0.0 Blood Cells % Immature 0.040 H Granulocytes # Neutrophils # 9.4 H Lymphocytes # 0.5 L Monocytes # 0.4 Eosinophils # 0.0 Basophils # 0.0 Nucleated Red 0.0 Blood Cells # Sodium Level 133 L Potassium Level 5.8 H Chloride Level 102 Carbon Dioxide 21 Level Anion Gap 10 Blood Urea 65 H Nitrogen Creatinine 2.59 H Est Glomerular Filtrat Rate mL/min Glucose Level 338 #H Calcium Level 8.3 L Phosphorus Level 6.6 H Magnesium Level 2.1 Test 10/14/18 08:24 10/14/18 09:00 10/14/18 09:34 Bedside Glucose 338 H 300 H Prothrombin Time 16.7 H Prothrombin Time 1.3 Ratio INR 1.34 International Normalized Ratio Activated 40.8 H Partial Thrombop last Time Medications Medications Current Medications Nitroglycerin (Nitroglycerin (Sl Tab) 0.4 Mg) 1 tab Q5M UP TO 3 DOSES PRN SL CHEST PAIN Last administered on 10/13/18 11:15; Admin Dose 1 TAB; Start 10/13/18 at 11:30 IV Flush (NS 3 ml) 3 ml PER PROTOCOL IV ; Start 10/13/18 at 15:00 Ondansetron HCl (Zofran Inj) 4 mg Q6H PRN IV NAUSEA/VOMITING; Start 10/13/18 at 15:00 Pantoprazole (Protonix Iv) 40 mg DAILY@06 IV Last administered on 10/14/18 05:11; Admin Dose 40 MG; Start 10/14/18 at 06:00 Vancomycin HCl (Vanco Iv Per Pharmacy) VANCOMYCIN PER PHARMACY PER PROTOCOL XX ; Start 10/13/18 at 15:30 Piperacillin Sod/ Tazobactam Sod 50 ml @ 100 mls/hr Q6 IVPB Last administered on 10/14/18 05:11; Admin Dose 100 MLS/HR; Start 10/13/18 at 18:00 Atorvastatin Calcium (Lipitor) 80 mg QHS PO Last administered on 10/13/18 20:55; Admin Dose 80 MG; Start 10/13/18 at 21:00 Carvedilol (Coreg) 6.25 mg BID PO Last administered on 10/14/18 09:45; Admin Dose 6.25 MG; Start 10/13/18 at 21:00 Cilostazol (Pletal) 100 mg BID PO Last administered on 10/14/18 09:46; Admin Dose 100 MG; Start 10/13/18 at 21:00 Clopidogrel Bisulfate (plaVIX) 75 mg DAILY PO Last administered on 10/14/18 09 :44; Admin Dose 75 MG; Start 10/14/18 at 09:00 Levothyroxine Sodium (Synthroid) 88 mcg BEFORE BREAKFAST PO Last administered on 10/14/18 06:17; Admin Dose 88 MCG; Start 10/14/18 at 07:00 Pentoxifylline (Trental) 400 mg TID PO ; Start 10/13/18 at 21:00; Status Hold Tamsulosin HCl (Flomax) 0.4 mg HS PO Last administered on 10/13/18at 20:55; Admin Dose 0.4 MG; Start 10/13/18 at 21:00 Vancomycin HCl 250 ml @ 125 mls/hr Q24H IVPB Last administered on 10/14/18at 06:17; Admin Dose 125 MLS/HR; Start 10/14/18 at 06:00 Dextrose (D50w Syringe) ONCE PRN IV DECREASED GLUCOSE Last administered on 09/22 12/07at 08:03; Admin Dose 50 ML; Start 10/13/18 at 17:30; Stop 10/14/18 at 17:29 Propofol 100 ml @ 2.16 mls/hr Q12H IV Last administered on 10/14/18at 10:33; Admin Dose 8.64 MLS/HR; Start 10/13/18 at 18:00 Heparin Sodium (Porcine) (Heparin (1000 Units/ml)) 5,800 unit PER PROTOCOL PRN IV aPTT<47; Start 10/14/18 at 09:00 Heparin Sodium (Porcine) (Heparin (1000 Units/ml)) 2,900 unit PER PROTOCOL PRN IV aPTT<47-57; Start 10/14/18 at 09:00 Heparin Sodium (Porcine) 250 ml @ 13 mls/hr PER PROTOCOL IV ; Start 10/14/18 at 09:00 NEMESIO UMAÑA Oct 14, 2018 10:49
--- NOTE | 2018-10-14 11:13 | CONS ---
DATE OF ADMISSION: 10/13/2018 DATE OF CONSULTATION: TYPE OF CONSULTATION: Pulmonary. REASON FOR CONSULTATION: Ventilator management. Thank you, Dr. Gleason, for this consultation. HISTORY OF PRESENT ILLNESS: This is a 73-year-old gentleman with advanced COPD, came in yesterday wi th increasing shortness of breath, orthopnea, PND requiring emergent intubation and mechanical ventil ation. In addition, he was in hypertensive crisis, having failed noninvasive positive pressure venti lation, now sedated on mechanical ventilation with elevated D-dimer, concerning for possible venous t hromboembolic disease with a confirmed history of severe peripheral vascular disease in the past. PAST MEDICAL HISTORY: Peripheral arterial disease, prior history of ID with stents x3, congestive ca rdiac failure, hypothyroidism. MEDICATIONS: Per chart. ALLERGIES: NONE. SOCIAL HISTORY: He has a positive tobacco history. REVIEW OF SYSTEMS: A 12-point review of systems is currently unable to perform. PHYSICAL EXAMINATION: GENERAL: Elderly-appearing gentleman, intubated on mechanical ventilation, appears comfortable at [facility], in no acute distress. VITAL SIGNS: Currently afebrile, temperature 98, pulse is 65, blood pressure 138/65 on 30% FiO2. NECK: Supple. No JVD or lymphadenopathy. CARDIAC: S1, S2. No added sounds or murmurs. CHEST: Diminished air entry bilaterally. ABDOMEN: Soft, nontender. No guarding or rebound. EXTREMITIES: No cyanosis, clubbing. A 1+ edema. NEUROLOGIC: Generalized weakness. LABORATORY DATA: White count 10.4, hemoglobin 12.7. Chemistry: Potassium is 5.8, BUN 65, creatinin e 2.59. Arterial blood gas: pH 7.31, pCO2 of 35, pO2 of 85 with evidence of metabolic acidosis. DIAGNOSTIC DATA: Chest x-ray was reviewed as was CT chest which demonstrated no focal infiltrates. IMPRESSION: 1. Likely acute hypoxemic respiratory failure secondary to chronic obstructive pulmonary disease exa cerbation. 2. Peripheral arterial disease. 3. Elevated D-dimer likely combination of acute on chronic renal failure and peripheral arterial dis ease. I recommend: 1. Cardiology evaluation. 2. Steroid taper. 3. Bronchodilators. 4. CPAP weaning trial. 5. DVT and GI prophylaxis. Dictated By: WINTER MONTOYA/LISSETT Conf#: [id number] DID#: [id number] CC: PETER GLEASON MD;*[facility]*
--- NOTE | 2018-10-14 11:48 | RADRPT ---
Echocardiogram Report Patient Name: MATHIEU CLARKPatient ID: [id number] : 1945 (73y 5m)Study Date: 10/14/2018 9:05:12 AM Gender: Lauracession #: [id number] Tech: LE Location: Ref.Physician: PETER GLEASON Height(Cm): BSA: Weight(Kg): Quality: GoodAccount #: Procedures: Echocardiographic Report: Transthoracic echocardiogram with complete 2D, M-Mode, and doppler examination. Indications: Congestive Heart Failure. Measurements: 2D/M Mode Doppler Measurement Value Normal Range Measurement Value Normal Range LVIDd 2D 5.9 [ 4.2 - 5.8 ] cm MORE Vmax 2.0 [ 2.0 - 4.0 ] cm2 LVIDs 2D 5.4 [ 2.5 - 4.0 ] cm AV Mean Mohamud 1.0 [ 70.0 - 90.0 ] cm/sec LVPWd 2D 1.1 [ 0.6 - 1.0 ] cm AV Mean PG 5.0 [ 2.0 - 4.0 ] mmHg IVSd 2D 1.1 [ 0.6 - 1.0 ] cm AV Peak Mohamud 1.4 [ 100.0 - 170.0 ] cm/sec IVS/LVPW 2D 1.0 ratio AV Peak PG 8.0 [ 2.0 - 9.0 ] mmHg EF 2D 25.0 [ 52.0 - 72.0 ] percent AV VTI 25.9 cm LVOT Diam 2.0 [ 2.3 - 2.9 ] cm LVOT Peak Mohamud 0.9 [ 70.0 - 110.0 ] cm/sec LVOT Area 3.1 cm2 LVOT Peak PG 3.0 [ 2.0 - 6.0 ] mmHg MV E Peak Mohamud 1.0 [ 60.0 - 130.0 ] cm/sec MV A Peak Mohamud 0.4 [ 100.0 - 120.0 ] cm/sec MV E/A 2.2 [ 0.8 - 1.5 ] ratio MV Decel Time 190 [ 104 - 258 ] msec Lat E` Mohamud 0.0 [ 10.0 - 15.0 ] cm/sec Med E` Mohamud 0.0 cm/sec MV E/A 2.2 [ 0.8 - 1.5 ] ratio TR Peak Mohamud 3.4 [ 100.0 - 280.0 ] cm/sec TR Peak PG 47.0 mmHg RA Pressure 15.0 mmHg Findings: Left Ventricle: Mild enlargement of left ventricle cavity. Severe left ventricular systolic dysfunction. Ejection fraction is visually estimated at 25 %. Tissue Doppler/Mitral Doppler indices are consistent with restrictive physiology with markedly elevated left atrial pressure (Stage III-IV diastolic dysfunction). There is global hypokinesis involving all segments of the left ventricle. Right Ventricle: Normal right ventricular size. Mild-moderate right ventricular systolic dysfunction. Left Atrium: There is moderate enlargement of left atrium. Right Atrium: There is mild enlargement of right atrium. Mitral Valve: Mitral valve leaflets appear mildly thickened. Mild mitral annular calcification. Moderate to severe mitral valve regurgitation. Aortic Valve: Normal appearance of the aortic valve. No significant aortic stenosis with trace-mild insufficiency. Tricuspid Valve: Normal appearance of the tricuspid valve. Right ventricular systolic pressure is consistent with moderate pulmonary hypertension. Estimated peak PA systolic pressure 62 mmHg. There is moderate tricuspid regurgitation. Pulmonic Valve: Normal pulmonic valve appearance. There is trace pulmonic regurgitation. Pericardium: Normal pericardium with no significant pericardial effusion. Left pleural effusion seen. Aorta: Normal aortic root. IVC: Dilated IVC without respiratory collapse, however, patient on ventilator. Conclusions: 1. Severe reduced left ventricular function with EF 20-25%. While the hypokinesis is global, it is most severe in the interventricular septum, inferior wall, posterior wall and apical 1/2 of the anterior wall, lateral wall and anteroseptum. The basal 1/2 of the lateral wall and anterior wall has the best function (low normal to mild hypokinesis). 2. The right ventricle is borderline enlarged with low normal function. 3. Moderate to severe mitral regurgitation. 4. RVSP is 62 mmHg (moderate to severely elevated). 5. Moderate tricuspid regurgitation. 6. Trace pericardial effusion. 7. Abnormal diastolic function (c/w pseudonormalization). Electronically Signed By: Alan Bennett 2018-10-14 11:47:11 PST
[2018-10-14] MEDS: METHYLPREDNISOLONE 40 MG INJ IV SCH ×3 (12:12→23:33)
--- NOTE | 2018-10-14 14:30 | PN ---
Date/Time of Note Date/Time of Note DATE: 10/14/18 TIME: 14:21 Assessment/Plan VTE Prophylaxis Risk score (from Nsg)>0 risk: 6 SCD applied (from Nsg): Yes SCD contraindicated: low risk/ambulating Pharmacological prophylaxis: heparin Lines/Catheters IV Catheter Type (from Nrsg): Mid Line Urinary Cath still in place: Yes Reason Cath still needed: other (indicate) (intubated) Assessment/Plan Assessment/Plan 73 yo man with CHF, history of UT, PAD, presents with acute respiratory failure #Acute respiratory failure - Acute onset over only a few hours. Associated with pulmonary edema but otherwise not much fluid overload. - May be COPD. Got IV steroids, Dr. Oleary following. PE: Currently with NOHEMY so no CTPA. Low suspicion for PE currently, will hold off on heparin gtt. Sepsis: No lobar infiltrate on CXR or CT. Will empirically continue Abx. ACS: Initial trop negative (0.1), EKG with right bundle. Dr. Bennett consulted from [facility] (Patient's learning analyst is Dr. Francisco Vernon). Will continue ASA/plavix - Overall appears about euvolemic. Diuresis only for hyperkalemia #NOHEMY #CKD #Hyperkalemia - Current Cr 2.13, baseline 1.8 in 2017. May just be progression of CKD - Hyperkalemia currently refractory to medical therapy. - Dr. Hunter consulted #PAD - Continue home cilostazol and pentoxifylline - No evidence of acute limb ischemia DVT: heparin GI: protonix Daughter (Ioana): [phone] >35 minutes critical care time spent on this patient. Result Diagram: 10/14/18 0816 10/14/18 0816 Subjective 24 Hr Interval Summary Free Text/Dictation Overnight hyperkalemia worsened. Got IV insulin but even with IV dextrose dropped hypoglycemic. Producing urine on lasix. Family at bedside, updated them on plan. Exam/Review of Systems Exam Vitals Vital Signs Date Temp Pulse Resp B/P (MAP) Pulse Ox O2 O2 Flow FiO2 Time Delivery Rate 10/14/18 75 16 100 30 13:09 10/14/18 133/72 Mechanical 11:00 (92) Ventilator 10/14/18 97.8 08:00 Intake and Output 2/10/13/18 10/14/18 1515:00 23:00 07:00 IntakeIntake Total 1100 ml 255.00 ml 710.16 ml OutputOutput Total 310 ml 175 ml BalanceBalance 1100 ml -55.00 ml 535.16 ml Exam Gen: Elderly man well developed intubated, sedated. Eyes: Normal pupils nonreactive to light, no icterus HEENT: ET tube in place, moist mucous membranes Neck: JVP visible about 5-6 cm above sternal notch Card: Distant heart sounds. Regular rate and rhythm, cannot appreciate murmurs Pulm: Mechanical breath sounds throughout, no crackles or rales. Abd: Soft, nondistended. Ext: No cyanosis/clubbing/edema. Bilateral feet with <2 sec cap refill but poor peripheral pulses. Skin: warm, dry. Results Results 24hrs Laboratory Tests Test 10/13/18 15:58 10/13/18 17:19 10/13/18 18:23 10/13/18 20:40 Sodium Level 137 137 Potassium Level 6.5 *H 5.2 H Chloride Level 102 102 Carbon Dioxide 21 23 Level Anion Gap 14 H 12 Blood Urea 59 H Nitrogen Creatinine 2.26 H Est Glomerular Filtrat Rate mL/min Glucose Level 80 Lactic Acid Level 3.1 *H Calcium Level 9.7 Troponin I 0.096 Bedside Glucose 114 110 Test 10/14/18 04:48 10/14/18 06:05 10/14/18 06:51 10/14/18 07:04 White Blood Count 12.4 H Red Blood Count 4.24 L Hemoglobin 13.2 L Hematocrit 40.7 L Mean Corpuscular 96.0 Volume Mean Corpuscular 31.1 Hemoglobin Mean Corpuscular 32.4 Hemoglobin Concen t Red Cell 14.0 Distribution Width Platelet Count 170 Mean Platelet 10.6 H Volume Immature 0.300 Granulocytes % Neutrophils % 81.0 H Lymphocytes % 8.5 L Monocytes % 9.7 Eosinophils % 0.2 Basophils % 0.3 Nucleated Red 0.2 H Blood Cells % Immature 0.040 H Granulocytes # Neutrophils # 10.1 H Lymphocytes # 1.1 Monocytes # 1.2 H Eosinophils # 0.0 Basophils # 0.0 Nucleated Red 0.0 Blood Cells # Sodium Level 132 L Potassium Level 6.7 *H Chloride Level 99 Carbon Dioxide 22 Level Anion Gap 11 Blood Urea 64 H Nitrogen Creatinine 2.60 H Est Glomerular Filtrat Rate mL/min Glucose Level 66 #L Hemoglobin A1c 5.3 Calcium Level 9.0 Phosphorus Level 7.4 H Magnesium Level 2.2 Total Bilirubin 0.1 L Direct Bilirubin 0.00 Indirect 0.1 Bilirubin Aspartate Amino 116 H Transf (AST/SGOT) Alanine 121 H Aminotransferase (ALT/SGPT) Alkaline 65 Phosphatase Total Protein 6.2 # Albumin 3.4 # Globulin 2.80 Albumin/Globulin 1.21 Ratio Thyroid 15.500 H Stimulating Hormone (TSH) Bedside Glucose 62 L 49 *L Blood Gas Blood arterial Specimen Source Arterial Blood 10/14/2018 7:49:0 Date Drawn 9 AM Arterial Blood pH 7.319 L (Temp corrected) Arterial Blood 35.3 pCO2 (Temp correct) Arterial Blood 84.5 pO2 (Temp corrected) Arterial Blood 17.7 L HCO3 Arterial Blood -7.5 L Base Excess Arterial Blood 94.3 L Oxygen Saturation Tommy Test ACCEPTAB Arterial Blood Right Radial Gas Puncture Site Arterial 0.8 Blood Carboxyhemo globin Arterial Blood 0.3 Methemoglobin Blood Gas A-a O2 87.9 H Differential Oxyhemoglobin 93.3 Percent Blood Gas 37.0 Temperature Blood Gas 12.0 Respiration Rate Blood Gas Actual 15 Respiration Rate Blood Gas VENT - AC Modality FiO2 30.0 Blood Gas Tidal 450.0 Volume Blood Gas Low 5.0 PEEP Setting Blood Gas DT Notified Whom Blood Gas 10/14/2018 8:12:4 Notified Time 5 AM Test 10/14/18 07:11 10/14/18 07:57 10/14/18 08:16 10/14/18 08:24 Bedside Glucose 40 *L 41 *L 338 H White Blood Count 10.4 Red Blood Count 4.03 L Hemoglobin 12.7 L Hematocrit 39.2 L Mean Corpuscular 97.3 Volume Mean Corpuscular 31.5 Hemoglobin Mean Corpuscular 32.4 Hemoglobin Concen t Red Cell 14.0 Distribution Width Platelet Count 147 Mean Platelet 10.0 Volume Immature 0.400 Granulocytes % Neutrophils % 90.4 H Lymphocytes % 5.2 L Monocytes % 3.8 Eosinophils % 0.0 Basophils % 0.2 Nucleated Red 0.0 Blood Cells % Immature 0.040 H Granulocytes # Neutrophils # 9.4 H Lymphocytes # 0.5 L Monocytes # 0.4 Eosinophils # 0.0 Basophils # 0.0 Nucleated Red 0.0 Blood Cells # Sodium Level 133 L Potassium Level 5.8 H Chloride Level 102 Carbon Dioxide 21 Level Anion Gap 10 Blood Urea 65 H Nitrogen Creatinine 2.59 H Est Glomerular Filtrat Rate mL/min Glucose Level 338 #H Calcium Level 8.3 L Phosphorus Level 6.6 H Magnesium Level 2.1 Test 10/14/18 09:00 10/14/18 09:34 10/14/18 13:07 Prothrombin Time 16.7 H Prothrombin Time 1.3 Ratio INR International 1.34 Normalized Ratio Activated 40.8 H Partial Thrombopl ast Time Bedside Glucose 300 H 97 Medications Medication Current Medications Nitroglycerin (Nitroglycerin (Sl Tab) 0.4 Mg) 1 tab Q5M UP TO 3 DOSES PRN SL CHEST PAIN Last administered on 10/13/18at 11:15; Admin Dose 1 TAB; Start 10/13/18 at 11:30 IV Flush (NS 3 ml) 3 ml PER PROTOCOL IV ; Start 10/13/18 at 15:00 Ondansetron HCl (Zofran Inj) 4 mg Q6H PRN IV NAUSEA/VOMITING; Start 10/13/18 at 15:00 Pantoprazole (Protonix Iv) 40 mg DAILY@06 IV Last administered on 10/14/18at 05:11; Admin Dose 40 MG; Start 10/14/18 at 06:00 Vancomycin HCl (Vanco Iv Per Pharmacy) VANCOMYCIN PER PHARMACY PER PROTOCOL XX ; Start 10/13/18 at 15:30 Piperacillin Sod/ Tazobactam Sod 50 ml @ 100 mls/hr Q6 IVPB Last administered on 10/14/18at 12:13; Admin Dose 100 MLS/HR; Start 10/13/18 at 18:00 Atorvastatin Calcium (Lipitor) 80 mg QHS PO Last administered on 10/13/18at 20:55; Admin Dose 80 MG; Start 10/13/18 at 21:00 Carvedilol (Coreg) 6.25 mg BID PO Last administered on 10/14/18 09:45; Admin Dose 6.25 MG; Start 10/13/18 at 21:00 Cilostazol (Pletal) 100 mg BID PO Last administered on 10/14/18at 09:46; Admin Dose 100 MG; Start 10/13/18 at 21:00 Clopidogrel Bisulfate (plaVIX) 75 mg DAILY PO Last administered on 10/14/18at 09:44; Admin Dose 75 MG; Start 10/14/18 at 09:00 Levothyroxine Sodium (Synthroid) 88 mcg BEFORE BREAKFAST PO Last administered on 10/14/18at 06:17; Admin Dose 88 MCG; Start 10/14/18 at 07:00 Pentoxifylline (Trental) 400 mg TID PO ; Start 10/13/18 at 21:00; Status Hold Tamsulosin HCl (Flomax) 0.4 mg HS PO Last administered on 10/13/18at 20:55; Admin Dose 0.4 MG; Start 10/13/18 at 21:00 Dextrose (D50w Syringe) ONCE PRN IV DECREASED GLUCOSE Last administered on 10/14/18 08:03; Admin Dose 50 ML; Start 10/13/18 at 17:30; Stop 10/14/18 at 17:29 Propofol 100 ml @ 2.16 mls/hr Q12H IV Last administered on 10/14/18at 10:33; Admin Dose 8.64 MLS/HR; Start 10/13/18 at 18:00 Methylprednisolone Sodium Succinate (Solu-Medrol) 40 mg Q6 IV Last administered on 10/14/18at 12:12; Admin Dose 40 MG; Start 10/14/18 at 12:00 Heparin Sodium (Porcine) (Heparin (5000 Units/1ml)) 5,000 unit BID SC ; Start 10/14/18 at 21:00 Vancomycin HCl 250 ml @ 125 mls/hr Q48H IVPB ; Start 10/16/18 at 06:00 PETER GLEASON MD Oct 14, 2018 14:30
[2018-10-14] MEDS: ATORVASTATIN 80 MG TAB PO SCH (21:19)
[2018-10-14] MEDS: TAMSULOSIN (SR) 0.4 MG CAP PO SCH (21:19)
[2018-10-15] VITALS (29 sets, daily range): BP systolic 115–143; BP diastolic 63–81; PULSE 70–86; RESP 10–24
[2018-10-15] MEDS: PROPOFOL 100 ML IV SCH ×2 (02:15→18:00)
[2018-10-15] MEDS: PIPER-TAZO 2.25 GM (PMX) 50 ML IVPB SCH ×3 (06:15→18:43)
[2018-10-15] MEDS: PANTOPRAZOLE 40 MG INJ IV SCH (06:15)
[2018-10-15] MEDS: LEVOTHYROXINE 88 MCG TAB PO SCH (06:15)
[2018-10-15] MEDS: METHYLPREDNISOLONE 40 MG INJ IV SCH ×2 (06:15→20:41)
[2018-10-15] MEDS: CLOPIDOGREL 75 MG TAB PO SCH (09:07)
[2018-10-15] MEDS: CILOSTAZOL 100 MG TAB PO SCH ×2 (09:07→20:42)
[2018-10-15] MEDS: HEPARIN 5,000 UNIT/1 ML VIAL SC SCH ×2 (09:21→20:45)
--- NOTE | 2018-10-15 09:46 | PN ---
Date/Time of Note Date/Time of Note DATE: 10/15/18 TIME: 09: Assessment/Plan VTE Prophylaxis Risk score (from Ns)>0 risk: 9 SCD applied (from [facility]): Yes SCD contraindicated: other Pharmacological prophylaxis: heparin Lines/Catheters IV [facility] Type (from [facility]): Peripheral IV Urinary Cath still in place: No Assessment/Plan Hospital Course S: Potassium levels appear improved today. Patient still intubated. O: VS - see below PE: Gen: Elderly man well developed intubated, sedated. Eyes: Normal pupils nonreactive to light, no icterus HEENT: ET tube in place, moist mucous membranes Neck: supple Card: Distant heart sounds. Regular rate and rhythm Pulm: Mechanical breath sounds throughout, no crackles or rales. Abd: Soft, nondistended. Ext: No cyanosis/clubbing/edema. 2D echo: Conclusions: 1. Severe reduced left ventricular function with EF 20-25%. While the hypokinesis is global, it is most severe in the interventricular septum, inferior wall, posterior wall and apical 1/2 of the anterior wall, lateral wall and anteroseptum. The basal 1/2 of the lateral wall and anterior wall has the best function (low normal to mild hypokinesis). 2. The right ventricle is borderline enlarged with low normal function. 3. Moderate to severe mitral regurgitation. 4. RVSP is 62 mmHg (moderate to severely elevated). 5. Moderate tricuspid regurgitation. 6. Trace pericardial effusion. 7. Abnormal diastolic function (c/w pseudonormalization). Assessment/Plan: 73 yo man with CHF, history of MA, PAD, presents with acute respiratory failure. #Acute respiratory failure- Acute onset over only a few hours. 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 Patient received IV steroids, pulmonary Dr. Oleary following. PE: Currently with NOHEMY so no CTPA. Low suspicion for PE currently. -Continue mechanical ventilation via pulmonary recommendations -Continue IV steroids per pulmonary recommendations - Will empirically continue Abx, follow final culture results # CHF -Echo results reviewed EF = 20-25%; ACS: Initial trop negative (0.1), EKG with right bundle. Dr. Bennett consulted from [facility] (Patient's outpatient psychiatrist is Dr. Sosa). - continue ASA/plavix - Continue Coreg, follow-up cardiology recommendations #NOHEMY on CKD with Hyperkalemia- baseline 1.8 in 2017, Current Cr is 2.6, May just be progression of CKD. Potassium levels have improved today. -Monitor, follow-up renal Dr. Hunter consulted #PAD- No evidence of acute limb ischemia - Continue home cilostazol and pentoxifylline DVT: heparin GI: protonix Daughter (Ioana): [phone] 45 minutes critical care time spent on this patient. Result Diagram: 10/15/180 10/15/18 0430 Results 24hrs Laboratory Tests Test 10/14/18 09:34 10/14/18 13:07 10/14/18 13:57 10/14/18 16:35 Bedside Glucose 300 H 97 86 Sodium Level 140 Potassium Level 4.7 Chloride Level 106 Carbon Dioxide Level 22 Anion Gap 12 Hepatitis B Surface NEGATIVE Antigen Hepatitis B Core NEGATIVE Total Antibody Hepatitis C Antibody NEGATIVE Test 10/15/18 04:30 White Blood Count 13.7 #H Red Blood Count 4.33 L Hemoglobin 13.5 L Hematocrit 40.5 L Mean Corpuscular 93.5 Volume Mean Corpuscular 31.2 Hemoglobin Mean Corpuscular 33.3 Hemoglobin Concent Red Cell 14.2 Distribution Width Platelet Count 172 Mean Platelet Volume 10.5 H Immature 0.700 H Granulocytes % Neutrophils % 94.0 H Lymphocytes % 3.5 L Monocytes % 1.7 Eosinophils % 0.0 Basophils % 0.1 Nucleated Red Blood 0.0 Cells % Immature 0.100 H Granulocytes # Neutrophils # 12.9 H Lymphocytes # 0.5 L Monocytes # 0.2 L Eosinophils # 0.0 Basophils # 0.0 Nucleated Red Blood 0.0 Cells # D-Dimer 2153.19 #H D-Dimer Comment Sodium Level 140 Potassium Level 4.3 Chloride Level 107 Carbon Dioxide Level 21 Anion Gap 12 Blood Urea Nitrogen 71 H Creatinine 2.61 H Est Glomerular Filtrat Rate mL/min Glucose Level 101 # Calcium Level 8.5 Exam/Review of Systems Exam Vitals Vital Signs Date Temp Pulse Resp B/P (MAP) Pulse Ox O2 O2 Flow FiO2 Time Delivery Rate 10/15/18 70 11 122/73 98 Mechanical 06:00 (89) Ventilator 10/15/18 30 05:10 10/15/18 97.7 04:00 Intake and Output 10/14/18 10/14/18 10/15/18 1515:00 23:00 07:00 IntakeIntake Total 446.16 ml 101.84 ml 101.84 ml OutputOutput Total 385 ml 280 ml 400 ml BalanceBalance 61.16 ml -178.16 ml -298.16 ml Results Results 24hrs Laboratory Tests Test 10/14/18 09:34 10/14/18 13:07 10/14/18 13:57 10/14/18 16:35 Bedside Glucose 300 H 97 86 Sodium Level 140 Potassium Level 4.7 Chloride Level 106 Carbon Dioxide Level 22 Anion Gap 12 Hepatitis B Surface NEGATIVE Antigen Hepatitis B Core NEGATIVE Total Antibody Hepatitis C Antibody NEGATIVE Test 10/15/18 04:30 White Blood Count 13.7 #H Red Blood Count 4.33 L Hemoglobin 13.5 L Hematocrit 40.5 L Mean Corpuscular 93.5 Volume Mean Corpuscular 31.2 Hemoglobin Mean Corpuscular 33.3 Hemoglobin Concent Red Cell 14.2 Distribution Width Platelet Count 172 Mean Platelet Volume 10.5 H Immature 0.700 H Granulocytes % Neutrophils % 94.0 H Lymphocytes % 3.5 L Monocytes % 1.7 Eosinophils % 0.0 Basophils % 0.1 Nucleated Red Blood 0.0 Cells % Immature 0.100 H Granulocytes # Neutrophils # 12.9 H Lymphocytes # 0.5 L Monocytes # 0.2 L Eosinophils # 0.0 Basophils # 0.0 Nucleated Red Blood 0.0 Cells # D-Dimer 2153.19 #H D-Dimer Comment Sodium Level 140 Potassium Level 4.3 Chloride Level 107 Carbon Dioxide Level 21 Anion Gap 12 Blood Urea Nitrogen 71 H Creatinine 2.61 H Est Glomerular Filtrat Rate mL/min Glucose Level 101 # Calcium Level 8.5 Medications Medication Current Medications Nitroglycerin (Nitroglycerin (Sl Tab) 0.4 Mg) 1 tab Q5M UP TO 3 DOSES PRN SL CHEST PAIN Last administered on 10/13/18at 11:15; Admin Dose 1 TAB; Start 10/13/18 at 11:30 IV Flush (NS 3 ml) 3 ml PER PROTOCOL IV ; Start 10/13/18 at 15:00 Ondansetron HCl (Zofran Inj) 4 mg Q6H PRN IV NAUSEA/VOMITING; Start 10/13/18 at 15:00 Pantoprazole (Protonix Iv) 40 mg DAILY@06 IV Last administered on 10/15/18 06:15; Admin Dose 40 MG; Start 10/14/18 at 06:00 Vancomycin HCl (Vanco Iv Per Pharmacy) VANCOMYCIN PER PHARMACY PER PROTOCOL XX ; Start 10/13/18 at 15:30 Piperacillin Sod/ Tazobactam Sod 50 ml @ 100 mls/hr Q6 IVPB Last administered on 10/15/18 06:15; Admin Dose 100 MLS/HR; Start 10/13/18 at 18:00 Atorvastatin Calcium (Lipitor) 80 mg QHS PO Last administered on 10/14/18 21:19; Admin Dose 80 MG; Start 10/13/18 at 21:00 Carvedilol (Coreg) 6.25 mg BID PO Last administered on 10/14/18 21:20; Admin Dose 6.25 MG; Start 10/13/18 at 21:00 Cilostazol (Pletal) 100 mg BID PO Last administered on 10/14/18 21:19; Admin Dose 100 MG; Start 10/13/18 at 21:00 Clopidogrel Bisulfate (plaVIX) 75 mg DAILY PO Last administered on 10/14/18 09:44; Admin Dose 75 MG; Start 10/14/18 at 09:00 Levothyroxine Sodium (Synthroid) 88 mcg BEFORE BREAKFAST PO Last administered on 10/15/18 06:15; Admin Dose 88 MCG; Start 10/14/18 at 07:00 Pentoxifylline (Trental) 400 mg TID PO ; Start 10/13/18 at 21:00; Status Hold Tamsulosin HCl (Flomax) 0.4 mg HS PO Last administered on 10/14/18 21:19; Admin Dose 0.4 MG; Start 10/13/18 at 21:00 Propofol 100 ml @ 2.16 mls/hr Q12H IV Last administered on 10/15/18 02:15; Admin Dose 6.48 MLS/HR; Start 10/13/18 at 18:00 Methylprednisolone Sodium Succinate (Solu-Medrol) 40 mg Q6 IV Last administered on 10/15/18 06:15; Admin Dose 40 MG; Start 10/14/18 at 12:00 Heparin Sodium (Porcine) (Heparin (5000 Units/1ml)) 5,000 unit BID SC Last administered on 10/14/18at 21:21; Admin Dose 5,000 UNIT; Start 10/14/18 at 21:00 Vancomycin HCl 250 ml @ 125 mls/hr Q48H IVPB ; Start 10/16/18 at 06:00 DOLORES LOWERY Oct 15, 2018 09:30
--- NOTE | 2018-10-15 11:19 | CONS ---
Consult Date/Type/Reason Admit Date/Time Oct 13, 2018 at 12:54 Initial Consult Date Type of Consult Pulmonary Date/Time of Note DATE: 10/15/18 TIME: 11:15 Subjective Patient placed on CPAP trial this morning. Awake alert no safely extubated was following simple commands. Objective Vital Signs Date Temp Pulse Resp B/P (MAP) Pulse Ox O2 O2 Flow FiO2 Time Delivery Rate 10/15/18 98 2.0 10:53 10/15/18 76 11 132/71 Mechanical 10:00 (91) Ventilator 10/15/18 30 08:55 10/15/18 97.5 08:00 Intake and Output 10/14/18 10/14/18 10/15/18 1515:00 23:00 07:00 IntakeIntake Total 446.16 ml 101.84 ml 110.48 ml OutputOutput Total 385 ml 280 ml 400 ml BalanceBalance 61.16 ml -178.16 ml -289.52 ml Exam GENERAL: Elderly gentleman comfortable at rest no acute distress VITAL SIGNS: per chart NECK: Supple. No JVD or lymphadenopathy. CARDIAC EXAM: S1, S2. No added sounds or murmurs. CHEST: clear bilaterally, No added sounds, rales or wheezes ABDOMEN: Soft, nontender. No guarding or rebound. EXTREMITIES: No cyanosis, clubbing or edema. NEUROLOGIC: Generalized weakness. No focal deficits. Vent Setting Ventilator Support Mode: CPAP, PS Fraction of Inspired Oxygen pe: 30 Positive End Expiratory Pressu: 5.0 Results/Medications Result Diagram: 10/15/18 0430 10/15/18 0430 Results 24 hrs Laboratory Tests Test 10/14/18 13:07 10/14/18 13:57 10/14/18 16:35 10/15/18 04:30 Bedside Glucose 97 86 Sodium Level 140 140 Potassium Level 4.7 4.3 Chloride Level 106 107 Carbon Dioxide 22 21 Level Anion Gap 12 12 Hepatitis B NEGATIVE Surface Antigen Hepatitis B Core NEGATIVE Total Antibody Hepatitis C NEGATIVE Antibody White Blood Count 13.7 #H Red Blood Count 4.33 L Hemoglobin 13.5 L Hematocrit 40.5 L Mean Corpuscular 93.5 Volume Mean Corpuscular 31.2 Hemoglobin Mean Corpuscular 33.3 Hemoglobin Concen t Red Cell 14.2 Distribution Width Platelet Count 172 Mean Platelet 10.5 H Volume Immature 0.700 H Granulocytes % Neutrophils % 94.0 H Lymphocytes % 3.5 L Monocytes % 1.7 Eosinophils % 0.0 Basophils % 0.1 Nucleated Red 0.0 Blood Cells % Immature 0.100 H Granulocytes # Neutrophils # 12.9 H Lymphocytes # 0.5 L Monocytes # 0.2 L Eosinophils # 0.0 Basophils # 0.0 Nucleated Red 0.0 Blood Cells # D-Dimer 2153.19 #H D-Dimer Comment Blood Urea 71 H Nitrogen Creatinine 2.61 H Est Glomerular Filtrat Rate mL/min Glucose Level 101 # Calcium Level 8.5 Test 10/15/18 09:50 Blood Gas Blood arterial Specimen Source Arterial Blood 10/15/2018 9:50:1 Date Drawn 1 AM Arterial Blood pH 7.403 (Temp corrected) Arterial Blood 33.7 L pCO2 (Temp correct) Arterial Blood 93.5 H pO2 (Temp corrected) Arterial Blood 20.5 L HCO3 Arterial Blood -3.3 L Base Excess Arterial Blood 96.6 Oxygen Saturation Tommy Test ACCEPTAB Arterial Blood Right Radial Gas Puncture Site Arterial 0.6 Blood Carboxyhemo globin Arterial Blood 0.3 Methemoglobin Blood Gas A-a O2 80.8 H Differential Oxyhemoglobin 95.7 Percent Blood Gas 37.0 Temperature Blood Gas Actual 17 Respiration Rate Blood Gas VENT - CPAP Modality FiO2 30.0 Blood Gas Low 5.0 PEEP Setting Blood Gas 10 Pressure Support Blood Gas TM Notified Whom Blood Gas 10/15/2018 9:59:4 Notified Time 9 AM Medications Current Medications Nitroglycerin (Nitroglycerin (Sl Tab) 0.4 Mg) 1 tab Q5M UP TO 3 DOSES PRN SL CHEST PAIN Last administered on 10/13/18at 11:15; Admin Dose 1 TAB; Start 10/13/18 at 11:30 IV Flush (NS 3 ml) 3 ml PER PROTOCOL IV ; Start 10/13/18 at 15:00 Ondansetron HCl (Zofran Inj) 4 mg Q6H PRN IV NAUSEA/VOMITING; Start 10/13/18 at 15:00 Pantoprazole (Protonix Iv) 40 mg DAILY@06 IV Last administered on 10/15/18at 06:15; Admin Dose 40 MG; Start 10/14/18 at 06:00 Vancomycin HCl (Vanco Iv Per Pharmacy) VANCOMYCIN PER PHARMACY PER PROTOCOL XX ; Start 10/13/18 at 15:30 Piperacillin Sod/ Tazobactam Sod 50 ml @ 100 mls/hr Q6 IVPB Last administered on 10/15/18 06:15; Admin Dose 100 MLS/HR; Start 10/13/18 at 18:00 Atorvastatin Calcium (Lipitor) 80 mg QHS PO Last administered on 10/14/18 21:19; Admin Dose 80 MG; Start 10/13/18 at 21:00 Carvedilol (Coreg) 6.25 mg BID PO Last administered on 10/15/18 09:07; Admin Dose 6.25 MG; Start 10/13/18 at 21:00 Cilostazol (Pletal) 100 mg BID PO Last administered on 10/15/18 09:07; Admin Dose 100 MG; Start 10/13/18 at 21:00 Clopidogrel Bisulfate (plaVIX) 75 mg DAILY PO Last administered on 10/15/18 09:07; Admin Dose 75 MG; Start 10/14/18 at 09:00 Levothyroxine Sodium (Synthroid) 88 mcg BEFORE BREAKFAST PO Last administered on 10/15/18 06:15; Admin Dose 88 MCG; Start 10/14/18 at 07:00 Pentoxifylline (Trental) 400 mg TID PO ; Start 10/13/18 at 21:00; Status Hold Tamsulosin HCl (Flomax) 0.4 mg HS PO Last administered on 10/14/18 21:19; Admin Dose 0.4 MG; Start 10/13/18 at 21:00 Propofol 100 ml @ 2.16 mls/hr Q12H IV Last administered on 10/15/18 02:15; Admin Dose 6.48 MLS/HR; Start 10/13/18 at 18:00 Methylprednisolone Sodium Succinate (Solu-Medrol) 40 mg Q6 IV Last administered on 10/15/18 06:15; Admin Dose 40 MG; Start 10/14/18 at 12:00 Heparin Sodium (Porcine) (Heparin (5000 Units/1ml)) 5,000 unit BID SC Last administered on 10/15/18 09:21; Admin Dose 5,000 UNIT; Start 10/14/18 at 21:00 Vancomycin HCl 250 ml @ 125 mls/hr Q48H IVPB ; Start 10/16/18 at 06:00 Assessment/Plan Hospital Course (Demo Recall) IMPRESSION: 1. Likely acute hypoxemic respiratory failure secondary to chronic obstructive pulmonary disease exacerbation. Extubated this morning 2. Peripheral arterial disease. 3. Elevated D-dimer likely combination of acute on chronic renal failure and peripheral arterial disease. Recommendations 1. Cardiology evaluation. 2. Steroid taper. 3. Bronchodilators. 4. Post extubation incentive spirometry bronchodilators, advance diet speech therapy evaluation and PT eval. 5. DVT and GI prophylaxis. Critical care 40 minutes W[facility] DE LEON [facility] Oct 15, 2018 11:18
[2018-10-15] MEDS: ARFORMOTEROL TARTRATE 15MCG/2 ML AMP NEB SCH ×2 (12:30→20:30)
[2018-10-15] MEDS: ALBUTEROL/IPRATROPIUM (NEB) 3 ML AMP HHN SCH ×2 (14:00→20:22)
--- NOTE | 2018-10-15 14:15 | CONS ---
Assessment/Plan Assessment/Plan Hospital Course (Demo Recall) 73 yom w/ CAD (hx of AWMI, PCI of LAD ~ 3 yrs ago), ICM, CKD (creatinine 1.8 in 2017), COPD, PAD (s/p SFA stent) and other issues who presented with respiratory distress. Etiology of respiratory distress is not clear. improving, pending extubation this am. Continue aspirin and plavix. Contniue coreg (as bp allows) and statin Consultation Date/Type/Reason Admit Date/Time Oct 13, 2018 at 12:54 Initial Consult Date Date/Time of Note DATE: 10/15/18 TIME: 14:13 Exam/Review of Systems Exam Vitals Vital Signs Date Temp Pulse Resp B/P (MAP) Pulse Ox O2 O2 Flow FiO2 Time Delivery Rate 10/15/18 80 12:00 10/15/18 98 2.0 10:53 10/15/18 11 132/71 Mechanical 10:00 (91) Ventilator 10/15/18 30 08:55 10/15/18 97.5 08:00 Intake and Output 10/14/18 10/14/18 10/15/18 1515:00 23:00 07:00 IntakeIntake Total 446.16 ml 101.84 ml 110.48 ml OutputOutput Total 385 ml 280 ml 400 ml BalanceBalance 61.16 ml -178.16 ml -289.52 ml Results Result Diagram: 10/15/18 0430 10/15/18 0430 Results 24hrs Laboratory Tests Test 10/14/18 16:35 10/15/18 04:30 10/15/18 09:50 Bedside Glucose 86 White Blood Count 13.7 #H Red Blood Count 4.33 L Hemoglobin 13.5 L Hematocrit 40.5 L Mean Corpuscular Volume 93.5 Mean Corpuscular Hemoglobin 31.2 Mean Corpuscular 33.3 Hemoglobin Concent Red Cell Distribution Width 14.2 Platelet Count 172 Mean Platelet Volume 10.5 H Immature Granulocytes % 0.700 H Neutrophils % 94.0 H Lymphocytes % 3.5 L Monocytes % 1.7 Eosinophils % 0.0 Basophils % 0.1 Nucleated Red Blood Cells % 0.0 Immature Granulocytes # 0.100 H Neutrophils # 12.9 H Lymphocytes # 0.5 L Monocytes # 0.2 L Eosinophils # 0.0 Basophils # 0.0 Nucleated Red Blood Cells # 0.0 D-Dimer 2153.19 #H D-Dimer Comment Sodium Level 140 Potassium Level 4.3 Chloride Level 107 Carbon Dioxide Level 21 Anion Gap 12 Blood Urea Nitrogen 71 H Creatinine 2.61 H Est Glomerular Filtrat Rate mL/min Glucose Level 101 # Calcium Level 8.5 Blood Gas Specimen Source Blood arterial Arterial Blood Date Drawn 10/15/2018 9:50:11 AM Arterial Blood pH 7.403 (Temp corrected) Arterial Blood pCO2 33.7 L (Temp correct) Arterial Blood pO2 93.5 H (Temp corrected) Arterial Blood HCO3 20.5 L Arterial Blood Base Excess -3.3 L Arterial Blood 96.6 Oxygen Saturation Tommy Test ACCEPTAB Arterial Blood Gas Right Radial Puncture Site Arterial 0.6 Blood Carboxyhemoglobin Arterial Blood Methemoglobin 0.3 Blood Gas A-a O2 80.8 H Differential Oxyhemoglobin Percent 95.7 Blood Gas Temperature 37.0 Blood Gas Actual 17 Respiration Rate Blood Gas Modality VENT - CPAP FiO2 30.0 Blood Gas Low PEEP Setting 5.0 Blood Gas Pressure Support 10 Blood Gas Notified Whom TM Blood Gas Notified Time 10/15/2018 9:59:49 AM Medications Medication Current Medications Nitroglycerin (Nitroglycerin (Sl Tab) 0.4 Mg) 1 tab Q5M UP TO 3 DOSES PRN SL CHEST PAIN Last administered on 10/13/18at 11:15; Admin Dose 1 TAB; Start 10/13/18 at 11:30 IV Flush (NS 3 ml) 3 ml PER PROTOCOL IV ; Start 10/13/18 at 15:00 Ondansetron HCl (Zofran Inj) 4 mg Q6H PRN IV NAUSEA/VOMITING; Start 10/13/18 at 15:00 Pantoprazole (Protonix Iv) 40 mg DAILY@06 IV Last administered on 10/15/18at 06:15; Admin Dose 40 MG; Start 10/14/18 at 06:00 Vancomycin HCl (Vanco Iv Per Pharmacy) VANCOMYCIN PER PHARMACY PER PROTOCOL XX ; Start 10/13/18 at 15:30 Piperacillin Sod/ Tazobactam Sod 50 ml @ 100 mls/hr Q6 IVPB Last administered on 10/15/18at 13:13; Admin Dose 100 MLS/HR; Start 10/13/18 at 18:00 Atorvastatin Calcium (Lipitor) 80 mg QHS PO Last administered on 10/14/18at 21:19; Admin Dose 80 MG; Start 10/13/18 at 21:00 Carvedilol (Coreg) 6.25 mg BID PO Last administered on 10/15/18 09:07; Admin Dose 6.25 MG; Start 10/13/18 at 21:00 Cilostazol (Pletal) 100 mg BID PO Last administered on 10/15/18 09:07; Admin Dose 100 MG; Start 10/13/18 at 21:00 Clopidogrel Bisulfate (plaVIX) 75 mg DAILY PO Last administered on 10/15/18 09:07; Admin Dose 75 MG; Start 10/14/18 at 09:00 Levothyroxine Sodium (Synthroid) 88 mcg BEFORE BREAKFAST PO Last administered on 10/15/18 06:15; Admin Dose 88 MCG; Start 10/14/18 at 07:00 Pentoxifylline (Trental) 400 mg TID PO ; Start 10/13/18 at 21:00; Status Hold Tamsulosin HCl (Flomax) 0.4 mg HS PO Last administered on 10/14/18 21:19; Admin Dose 0.4 MG; Start 10/13/18 at 21:00 Propofol 100 ml @ 2.16 mls/hr Q12H IV Last administered on 10/15/18 02:15; Admin Dose 6.48 MLS/HR; Start 10/13/18 at 18:00 Heparin Sodium (Porcine) (Heparin (5000 Units/1ml)) 5,000 unit BID SC Last administered on 10/15/18 09:21; Admin Dose 5,000 UNIT; Start 10/14/18 at 21:00 Vancomycin HCl 250 ml @ 125 mls/hr Q48H IVPB ; Start 10/16/18 at 06:00 Methylprednisolone Sodium Succinate (Solu-Medrol) 40 mg Q12 IV ; Start 10/15/18 at 21:00 Albuterol/ Ipratropium (Duoneb) 3 ml Q6HWA RESP THERAPY HHN ; Start 10/15/18 at 14:00 Arformoterol Tartrate (Brovana (Neb)) 2 ml Q12H RESP THERAPY NEB ; Start 10/15/18 at 12:30 TASNEEM ANDERSON Oct 15, 2018 14:15
--- NOTE | 2018-10-15 14:59 | CONS ---
DATE OF ADMISSION: 10/13/2018 DATE OF CONSULTATION: HISTORY OF PRESENT ILLNESS: The patient is a 73-year-old gentleman with a past medical history of co ronary artery disease, CHF, ID, peripheral artery disease. Patient presents with acute onset of resp iratory failure, noted to have acute kidney injury as well. Creatinine at baseline in 2017 was 1.8. Creatinine today was noted to be 2.13, but also noted marked hyperkalemia. potassium richardson s gone up again. History is obtained from the chart. Apparently, he was in his usual state of healt h until the night of before admission where he developed 3 episodes of diarrhea and shortness of jacque th. He is not on any NSAIDs or MONIQUE inhibitors. PAST MEDICAL HISTORY: Significant for the above. MEDICATIONS: From home include: 1. Flomax. 2. Synthroid. 3. Potassium chloride. 4. Allopurinol. 5. Plavix. 6. Cilostazol. 7. Lipitor. 8. Coreg. 9. Furosemide. 10. Pentoxifylline. ALLERGIES: NO KNOWN ALLERGIES. SOCIAL HISTORY: Does not smoke, drink or use IV drugs. FAMILY HISTORY: No history of kidney disease. REVIEW OF SYSTEMS: A 14-point review of systems attempted, negative unless stated on exam. PHYSICAL EXAMINATION: VITAL SIGNS: We see temperature 98, blood pressure 138/65. HEENT: Normocephalic, atraumatic. Pupils equal and reactive to light. Oropharynx is moist mucous me mbranes. NECK: Supple. HEART: Regular rate and rhythm. LUNGS: Clear to auscultation. ABDOMEN: Soft, nontender, nondistended. Bowel sounds are present. LABORATORY EVALUATION: White count 10.4, hemoglobin 12.7. Sodium is 133, potassium 5.8, BUN 65, cre atinine 2.6. UA is reviewed on microscopy. Chest x-ray is reviewed by radiologist, and TSH was note d at 15.5. IMPRESSION: 1. Acute kidney injury, nonoliguric, an underlying chronic kidney disease, acute component complicat ed by hyperkalemia. Dialysis was arranged in advance. Seen on dialysis in light of the hyperkalemia . Had multiple large BMs. Labs showed improvement of potassium. 2. Respiratory failure, acute, possibly related to chronic obstructive pulmonary disease exacerbatio n, elevated D-dimer noted. Lower extremity duplex study showed no sign of radiographic evidence of D VT. Pulmonary is following. 3. Hypoglycemia. Adjust medications per primary. 4. History of peripheral artery disease. Medication optimized. Dictated By: RENU QUINONEZ MD DF/NTS Conf#: [id number] DID#: [id number] CC: PETER GLEASON MD;*EndCC*
--- NOTE | 2018-10-15 15:17 | PN ---
DATE: 10/15/2018 SUBJECTIVE: The patient is in serious but stable condition. The patient is on full ventilatory supp ort. No other acute events noted. No hemoptysis, hematemesis, hematochezia. OBJECTIVE: VITAL SIGNS: Blood pressure is 122/73, respiration 11, pulse 70, temperature 97.7. HEENT: Head is normocephalic. NECK: Supple. HEART: Regular rate. LUNGS: Show diminished breath sounds at the base. ABDOMEN: Soft, nontender to palpation. No rebound or guarding. EXTREMITIES: Negative for clubbing, cyanosis, no edema. DERMATOLOGIC: No rashes. MUSCULOSKELETAL: No joint effusion. NEUROLOGIC: No change in exam. MEDICATIONS: Reviewed. LABORATORY DATA: Shows sodium 140, potassium 4.3, BUN 71, creatinine 2.71. Urinalysis shows a FENa of less than 1%. IMAGING STUDIES: Microbiology was reviewed. Renal ultrasound was reviewed, no evidence of hydroneph rosis. ASSESSMENT AND PLAN: This is a 73-year-old male who presents with: 1. Nonoliguric acute kidney injury with unknown baseline creatinine. Etiology of acute kidney injur y is likely multifactorial secondary to hemodynamics, questionable cardiorenal syndrome, questionable tubular injury. The patient's urinalysis was reviewed. The patient showed a FENa less than 1% whic h can be seen in prerenal state, i.e. volume depletion, sepsis, decompensated heart failure. The pat ient's 2D echo was reviewed which showed ejection fraction of 20 to 25%, moderate tricuspid regurgita tion and dilated IVC consistent with pathophysiology of cardiorenal syndrome. The patient's urinary output has improved in the last 24 hours. At this point, will continue current treatment plan, suppo rtive care, renally dose all meds. Would continue intermittent diuretic therapy as needed to maintai n euvolemic status. Will monitor closely. 2. Anemia. Continue to monitor hemoglobin and hematocrit levels. 3. Mineral bone disorder, monitor calcium and phosphorus levels. 4. Acute hypoxemic respiratory failure secondary to chronic obstructive pulmonary disease, status po st congestive heart failure. Continue medical management. The patient on ventilatory support. Foll ow up vent settings. ABG was followed, followup with pulmonary. 5. History of coronary artery disease. Continue medical management. 6. Systolic heart failure, acute on chronic. The patient's 2D echo was reviewed. Will continue to monitor renal function closely. We will resume intermittent diuretic therapy as needed to maintain e uvolemic status, monitoring electrolytes and renal function closely. 7. Encephalopathy, etiology toxic metabolic. Continue to monitor. 8. History of peripheral arterial disease. Continue medical management. 9. Hyperkalemia, resolved. Will continue to monitor. 10. Hyponatremia, currently resolved. We will continue current medical management. 11. History of hypertension. Blood pressure currently controlled. We will continue medical managem ent. Defer any MONIQUE inhibitor or ARB in the setting of hyperkalemia, possible acute kidney injury. Please note, I spent over 30 minutes of critical care time with this patient. Dictated By: BRET PETERS DO NR/NTS Conf#: [id number] DID#: [id number] CC: PETER GLEASON MD;*EndCC*
[2018-10-15] MEDS: TAMSULOSIN (SR) 0.4 MG CAP PO SCH (20:42)
[2018-10-15] MEDS: ATORVASTATIN 80 MG TAB PO SCH (20:42)
[2018-10-16] VITALS (21 sets, daily range): BP systolic 115–158; BP diastolic 68–106; PULSE 66–95; RESP 10–21
[2018-10-16] MEDS: PIPER-TAZO 2.25 GM (PMX) 50 ML IVPB SCH ×5 (00:16→23:47)
[2018-10-16] MEDS: PANTOPRAZOLE 40 MG INJ IV SCH (05:09)
[2018-10-16] MEDS ORDERED: VANCOMYCIN 1 GM 250 ML IVPB SCH (06:00)
[2018-10-16] MEDS: LEVOTHYROXINE 88 MCG TAB PO SCH (06:02)
[2018-10-16] MEDS: ARFORMOTEROL TARTRATE 15MCG/2 ML AMP NEB SCH ×2 (07:51→20:17)
[2018-10-16] MEDS: ALBUTEROL/IPRATROPIUM (NEB) 3 ML AMP HHN SCH ×3 (07:51→20:17)
--- NOTE | 2018-10-16 08:21 | PN ---
DATE: 10/16/2018 SUBJECTIVE: The patient is stable, was extubated overnight without any complications. No other acut e events noted. OBJECTIVE: VITAL SIGNS: Blood pressure is 120/82, respirations 18, pulse 80, temperature 98.3. HEENT: Head is normocephalic. NECK: Supple. HEART: Regular rate. LUNGS: Show diminished breath sounds at the base. ABDOMEN: Soft, nontender to palpation without rebound or guarding. EXTREMITIES: Negative for clubbing, cyanosis. Trace edema. DERMATOLOGIC: No rashes. MUSCULOSKELETAL: No joint effusion. NEUROLOGIC: No change in exam. MEDICATIONS: Reviewed. LABORATORY DATA: Shows white count 12.5, hemoglobin 12.8, platelet count is 156. Sodium 140, potass ium 4.2, BUN 57, creatinine 1.92. IMAGING STUDIES: Reviewed. ASSESSMENT AND PLAN: 1. Nonoliguric acute kidney injury with unknown baseline creatinine. Etiology of acute kidney injur y is multifactorial secondary to hemodynamics, possible cardiorenal syndrome, tubular injury. The hyacinth jones's renal function has improved in the last 24 hours with supportive care. The patient clinicall y appears to be near euvolemic status. At this point, we will continue current treatment plan, suppo rtive care, renally dose all medicines. We will start the patient on low-dose diuretic therapy to ma intain euvolemic status. 2. Anemia. Continue to monitor hemoglobin and hematocrit levels. 3. Mineral bone disorder. Continue to monitor calcium and phosphorus levels. 4. Acute hypoxemic respiratory failure secondary to chronic obstructive pulmonary disease exacerbati on and congestive heart failure. Continue medical management. The patient is post extubation. Stab le on 2 liters nasal cannula. Follow up with pulmonary. 5. History of coronary artery disease. Continue medical management. 6. Acute on chronic heart failure. The patient appears near euvolemic status. Continue current med ical management. We will start the patient on low-dose diuretic therapy. 7. Encephalopathy, etiology is toxic metabolic. 8. History of peripheral arterial disease. Continue medical management. 9. Hyperkalemia, resolved. 10. Hypernatremia, resolved. 11. Hypertension. Blood pressure currently controlled. We would defer any MONIQUE inhibitor or ARB at this time. Dictated By: BRET URIARTE/LISSETT Conf#: [id number] [facility]#: [id number] CC: DOLORES LOWERY; WINTER DE LEON MD; PETER GLEASON MD;*[facility]*
[2018-10-16] MEDS: HEPARIN 5,000 UNIT/1 ML VIAL SC SCH ×2 (08:59→20:05)
[2018-10-16] MEDS: CILOSTAZOL 100 MG TAB PO SCH ×2 (09:01→22:16)
[2018-10-16] MEDS: CLOPIDOGREL 75 MG TAB PO SCH (09:02)
[2018-10-16] MEDS: FUROSEMIDE 20 MG TAB PO SCH (09:02)
[2018-10-16] MEDS: METHYLPREDNISOLONE 40 MG INJ IV SCH ×2 (09:02→20:02)
--- NOTE | 2018-10-16 10:16 | PN ---
Date/Time of Note Date/Time of Note DATE: 10/16/18 TIME: 10:14 Assessment/Plan VTE Prophylaxis Risk score (from Ns)>0 risk: 6 SCD applied (from [facility] [place] No SCD contraindicated: other Pharmacological prophylaxis: heparin Lines/Catheters IV Catheter Type (from [facility] Saline Lock Urinary Cath still in place: Yes Reason Cath still needed: urinary retention Assessment/Plan Hospital Course S: Patient extubated yesterday. Seen by renal team this morning. O: VS - see below PE: Gen: Elderly man well developed, lying in bed Eyes: Normal pupils nonreactive to light, no icterus HEENT: ET tube in place, moist mucous membranes Neck: supple Card: Distant heart sounds. Regular rate and rhythm Pulm: Mechanical breath sounds throughout, no crackles or rales. Abd: Soft, nondistended. Ext: No cyanosis/clubbing/edema. 2D echo: Conclusions: 1. Severe reduced left ventricular function with EF 20-25%. While the hypokinesis is global, it is most severe in the interventricular septum, inferior wall, posterior wall and apical 1/2 of the anterior wall, lateral wall and anteroseptum. The basal 1/2 of the lateral wall and anterior wall has the best function (low normal to mild hypokinesis). 2. The right ventricle is borderline enlarged with low normal function. 3. Moderate to severe mitral regurgitation. 4. RVSP is 62 mmHg (moderate to severely elevated). 5. Moderate tricuspid regurgitation. 6. Trace pericardial effusion. 7. Abnormal diastolic function (c/w pseudonormalization). Assessment/Plan: 73 yo man with CHF, history of ND, PAD, presents with acute respiratory failure. #Acute respiratory failure-again extubated yesterday. Associated with pulmonary edema but otherwise not much fluid overload, possibly secondary to COPD. Patient received IV steroids, pulmonary Dr. Oleary following. PE: Currently with NOHEMY so no CTPA. Low suspicion for PE currently. -Monitor, continue IV steroids with weaning per pulmonary recommendations - Will empirically continue Abx, follow final culture results -We will get PT and OT consults as well # CHF -slowly improving now, Echo results reviewed EF = 20-25%; ACS: Initial trop negative (0.1), EKG with right bundle. Cardiology team on the case - continue ASA/plavix - Continue Coreg, follow-up cardiology recommendations #NOHEMY on CKD -also had Hyperkalemia- baseline 1.8 in 2017, creatinine slowly trending down, today 1.9 May just be progression of CKD. Potassium level stable the last couple of days -Monitor, follow-up renal Dr. Hunter consulted #PAD- No evidence of acute limb ischemia - Continue home cilostazol and pentoxifylline DVT: heparin GI: protonix Daughter (Ioana): [phone] 45 minutes critical care time spent on this patient. Result Diagram: 10/16/1842710/16/18427 Results 24hrs Laboratory Tests Test 10/16/18 04:28 White Blood Count 12.5 H Red Blood Count 4.11 L Hemoglobin 12.8 L Hematocrit 38.7 L Mean Corpuscular Volume 94.2 Mean Corpuscular Hemoglobin 31.1 Mean Corpuscular Hemoglobin Concent 33.1 Red Cell Distribution Width 14.3 Platelet Count 156 Mean Platelet Volume 10.3 Immature Granulocytes % 0.600 H Neutrophils % 92.3 H Lymphocytes % 2.6 L Monocytes % 4.4 Eosinophils % 0.0 Basophils % 0.1 Nucleated Red Blood Cells % 0.0 Immature Granulocytes # 0.080 H Neutrophils # 11.6 H Lymphocytes # 0.3 L Monocytes # 0.6 Eosinophils # 0.0 Basophils # 0.0 Nucleated Red Blood Cells # 0.0 Sodium Level 140 Potassium Level 4.2 Chloride Level 106 Carbon Dioxide Level 24 Anion Gap 10 Blood Urea Nitrogen 57 H Creatinine 1.92 H Est Glomerular Filtrat Rate mL/min Glucose Level 147 # Calcium Level 8.4 Phosphorus Level 3.6 # Magnesium Level 2.3 Exam/Review of Systems Exam Vitals Vital Signs Date Temp Pulse Resp B/P (MAP) Pulse Ox O2 O2 Flow FiO2 Time Delivery Rate 10/16/18 72 20 128/90 100 Nasal 2.0 09:00 (103) Cannula 10/16/18 97.1 08:00 10/16/18 21 07:53 Intake and Output 10/15/18 10/15/18 10/16/18 1414:59 22:59 06:59 IntakeIntake Total 58.64 ml 290 ml 220 ml OutputOutput Total 135 ml 232 ml 491 ml BalanceBalance -76.36 ml 58 ml -271 ml Results Results 24hrs Laboratory Tests Test 10/16/18 04:28 White Blood Count 12.5 H Red Blood Count 4.11 L Hemoglobin 12.8 L Hematocrit 38.7 L Mean Corpuscular Volume 94.2 Mean Corpuscular Hemoglobin 31.1 Mean Corpuscular Hemoglobin Concent 33.1 Red Cell Distribution Width 14.3 Platelet Count 156 Mean Platelet Volume 10.3 Immature Granulocytes % 0.600 H Neutrophils % 92.3 H Lymphocytes % 2.6 L Monocytes % 4.4 Eosinophils % 0.0 Basophils % 0.1 Nucleated Red Blood Cells % 0.0 Immature Granulocytes # 0.080 H Neutrophils # 11.6 H Lymphocytes # 0.3 L Monocytes # 0.6 Eosinophils # 0.0 Basophils # 0.0 Nucleated Red Blood Cells # 0.0 Sodium Level 140 Potassium Level 4.2 Chloride Level 106 Carbon Dioxide Level 24 Anion Gap 10 Blood Urea Nitrogen 57 H Creatinine 1.92 H Est Glomerular Filtrat Rate mL/min Glucose Level 147 # Calcium Level 8.4 Phosphorus Level 3.6 # Magnesium Level 2.3 Medications Medication Current Medications Nitroglycerin (Nitroglycerin (Sl Tab) 0.4 Mg) 1 tab Q5M UP TO 3 DOSES PRN SL CHEST PAIN Last administered on 10/13/18at 11:15; Admin Dose 1 TAB; Start 10/13/18 at 11:30 IV Flush (NS 3 ml) 3 ml PER PROTOCOL IV ; Start 10/13/18 at 15:00 Ondansetron HCl (Zofran Inj) 4 mg Q6H PRN IV NAUSEA/VOMITING; Start 10/13/18 at 15:00 Pantoprazole (Protonix Iv) 40 mg DAILY@06 IV Last administered on 10/16/18at 05:09; Admin Dose 40 MG; Start 10/14/18 at 06:00 Vancomycin HCl (Vanco Iv Per Pharmacy) VANCOMYCIN PER PHARMACY PER PROTOCOL XX ; Start 10/13/18 at 15:30 Piperacillin Sod/ Tazobactam Sod 50 ml @ 100 mls/hr Q6 IVPB Last administered on 10/16/18at 05:09; Admin Dose 100 MLS/HR; Start 10/13/18 at 18:00 Atorvastatin Calcium (Lipitor) 80 mg QHS PO Last administered on 10/15/18at 20:42; Admin Dose 80 MG; Start 10/13/18 at 21:00 Carvedilol (Coreg) 6.25 mg BID PO Last administered on 10/16/18 09:02; Admin Dose 6.25 MG; Start 10/13/18 at 21:00 Cilostazol (Pletal) 100 mg BID PO Last administered on 10/16/18 09:01; Admin Dose 100 MG; Start 10/13/18 at 21:00 Clopidogrel Bisulfate (plaVIX) 75 mg DAILY PO Last administered on 10/16/18 09:02; Admin Dose 75 MG; Start 10/14/18 at 09:00 Levothyroxine Sodium (Synthroid) 88 mcg BEFORE BREAKFAST PO Last administered on 10/16/18 06:02; Admin Dose 88 MCG; Start 10/14/18 at 07:00 Pentoxifylline (Trental) 400 mg TID PO ; Start 10/13/18 at 21:00; Status Hold Tamsulosin HCl (Flomax) 0.4 mg HS PO Last administered on 10/15/18 20:42; Admin Dose 0.4 MG; Start 10/13/18 at 21:00 Heparin Sodium (Porcine) (Heparin (5000 Units/1ml)) 5,000 unit BID SC Last administered on 10/16/18 08:59; Admin Dose 5,000 UNIT; Start 10/14/18 at 21:00 Vancomycin HCl 250 ml @ 125 mls/hr Q48H IVPB Last administered on 10/16/18 06:02; Admin Dose 125 MLS/HR; Start 10/16/18 at 06:00 Methylprednisolone Sodium Succinate (Solu-Medrol) 40 mg Q12 IV Last administered on 10/16/18 09:02; Admin Dose 40 MG; Start 10/15/18 at 21:00 Albuterol/ Ipratropium (Duoneb) 3 ml Q6HWA RESP THERAPY HHN Last administered on 10/16/18 07:51; Admin Dose 3 ML; Start 10/15/18 at 14:00 Arformoterol Tartrate (Brovana (Neb)) 2 ml Q12H RESP THERAPY NEB Last administered on 10/16/18 07:51; Admin Dose 2 ML; Start 10/15/18 at 12:30 Furosemide (Lasix) 20 mg DAILY PO Last administered on 10/16/18 09:02; Admin Dose 20 MG; Start 10/16/18 at 09:00 DOLORES LOWERY Oct 16, 2018 10:16
--- NOTE | 2018-10-16 11:45 | CONS ---
Consult Date/Type/Reason Admit Date/Time Oct 13, 2018 at 12:54 Initial Consult Date Type of Consult Pulmonary Date/Time of Note DATE: 10/16/18 TIME: 11:45 Subjective Patient extubated yesterday remains comfortable awake alert oriented no respiratory distress. Objective Vital Signs Date Temp Pulse Resp B/P (MAP) Pulse Ox O2 O2 Flow FiO2 Time Delivery Rate 10/16/18 72 20 128/90 100 Nasal 2.0 09:00 (103) Cannula 10/16/18 97.1 08:00 10/16/18 21 07:53 Intake and Output 10/15/18 10/15/18 10/16/18 1515:00 23:00 07:00 IntakeIntake Total 50 ml 290 ml 220 ml OutputOutput Total 135 ml 290 ml 483 ml BalanceBalance -85 ml 0 ml -263 ml Exam GENERAL: Elderly gentleman comfortable at rest no acute distress VITAL SIGNS: per chart NECK: Supple. No JVD or lymphadenopathy. CARDIAC EXAM: S1, S2. No added sounds or murmurs. CHEST: clear bilaterally, No added sounds, rales or wheezes ABDOMEN: Soft, nontender. No guarding or rebound. EXTREMITIES: No cyanosis, clubbing or edema. NEUROLOGIC: Generalized weakness. No focal deficits. Vent Setting Ventilator Support Mode: CPAP, PS Fraction of Inspired Oxygen pe: 21 Positive End Expiratory Pressu: 5.0 Results/Medications Result Diagram: 10/16/1842710/16/18427 Results 24 hrs Laboratory Tests Test 10/16/18 04:28 White Blood Count 12.5 H Red Blood Count 4.11 L Hemoglobin 12.8 L Hematocrit 38.7 L Mean Corpuscular Volume 94.2 Mean Corpuscular Hemoglobin 31.1 Mean Corpuscular Hemoglobin Concent 33.1 Red Cell Distribution Width 14.3 Platelet Count 156 Mean Platelet Volume 10.3 Immature Granulocytes % 0.600 H Neutrophils % 92.3 H Lymphocytes % 2.6 L Monocytes % 4.4 Eosinophils % 0.0 Basophils % 0.1 Nucleated Red Blood Cells % 0.0 Immature Granulocytes # 0.080 H Neutrophils # 11.6 H Lymphocytes # 0.3 L Monocytes # 0.6 Eosinophils # 0.0 Basophils # 0.0 Nucleated Red Blood Cells # 0.0 Sodium Level 140 Potassium Level 4.2 Chloride Level 106 Carbon Dioxide Level 24 Anion Gap 10 Blood Urea Nitrogen 57 H Creatinine 1.92 H Est Glomerular Filtrat Rate mL/min Glucose Level 147 # Calcium Level 8.4 Phosphorus Level 3.6 # Magnesium Level 2.3 Medications Current Medications Nitroglycerin (Nitroglycerin (Sl Tab) 0.4 Mg) 1 tab Q5M UP TO 3 DOSES PRN SL CHEST PAIN Last administered on 10/13/18 11:15; Admin Dose 1 TAB; Start 10/13/18 at 11:30 IV Flush (NS 3 ml) 3 ml PER PROTOCOL IV ; Start 10/13/18 at 15:00 Ondansetron HCl (Zofran Inj) 4 mg Q6H PRN IV NAUSEA/VOMITING; Start 10/13/18 at 15:00 Pantoprazole (Protonix Iv) 40 mg DAILY@06 IV Last administered on 10/16/18 05:09; Admin Dose 40 MG; Start 10/14/18 at 06:00 Vancomycin HCl (Vanco Iv Per Pharmacy) VANCOMYCIN PER PHARMACY PER PROTOCOL XX ; Start 10/13/18 at 15:30 Piperacillin Sod/ Tazobactam Sod 50 ml @ 100 mls/hr Q6 IVPB Last administered on 10/16/18 05:09; Admin Dose 100 MLS/HR; Start 10/13/18 at 18:00 Atorvastatin Calcium (Lipitor) 80 mg QHS PO Last administered on 10/15/18 20:42; Admin Dose 80 MG; Start 10/13/18 at 21:00 Carvedilol (Coreg) 6.25 mg BID PO Last administered on 10/16/18 09:02; Admin Dose 6.25 MG; Start 10/13/18 at 21:00 Cilostazol (Pletal) 100 mg BID PO Last administered on 10/16/18 09:01; Admin Dose 100 MG; Start 10/13/18 at 21:00 Clopidogrel Bisulfate (plaVIX) 75 mg DAILY PO Last administered on 10/16/18 09:02; Admin Dose 75 MG; Start 10/14/18 at 09:00 Levothyroxine Sodium (Synthroid) 88 mcg BEFORE BREAKFAST PO Last administered on 10/16/18 06:02; Admin Dose 88 MCG; Start 10/14/18 at 07:00 Pentoxifylline (Trental) 400 mg TID PO ; Start 10/13/18 at 21:00; Status Hold Tamsulosin HCl (Flomax) 0.4 mg HS PO Last administered on 10/15/18 20:42; Admin Dose 0.4 MG; Start 10/13/18 at 21:00 Heparin Sodium (Porcine) (Heparin (5000 Units/1ml)) 5,000 unit BID SC Last administered on 10/16/18 08:59; Admin Dose 5,000 UNIT; Start 10/14/18 at 21:00 Vancomycin HCl 250 ml @ 125 mls/hr Q48H IVPB Last administered on 10/16/18 06:02; Admin Dose 125 MLS/HR; Start 10/16/18 at 06:00 Methylprednisolone Sodium Succinate (Solu-Medrol) 40 mg Q12 IV Last administered on 10/16/18 09:02; Admin Dose 40 MG; Start 10/15/18 at 21:00 Albuterol/ Ipratropium (Duoneb) 3 ml Q6HWA RESP THERAPY HHN Last administered on 10/16/18 07:51; Admin Dose 3 ML; Start 10/15/18 at 14:00 Arformoterol Tartrate (Brovana (Neb)) 2 ml Q12H RESP THERAPY NEB Last administered on 10/16/18 07:51; Admin Dose 2 ML; Start 10/15/18 at 12:30 Furosemide (Lasix) 20 mg DAILY PO Last administered on 10/16/18 09:02; Admin Dose 20 MG; Start 10/16/18 at 09:00 Assessment/Plan Hospital Course (Demo Recall) IMPRESSION: 1. Likely acute hypoxemic respiratory failure secondary to chronic obstructive pulmonary disease exacerbation. Remained stable post extubation 2. Peripheral arterial disease. 3. Elevated D-dimer likely combination of acute on chronic renal failure and peripheral arterial disease. Recommendations 1. Cardiology evaluation. 2. Steroid taper. 3. Bronchodilators. 4. Post extubation incentive spirometry bronchodilators, advance diet speech therapy evaluation and PT eval. 5. DVT and GI prophylaxis. Stable for transfer to telemetry Critical care 40 minutes WINTER DE LEON MD, [facility] Oct 16, 2018 11:45
[2018-10-16] MEDS: ATORVASTATIN 80 MG TAB PO SCH (20:02)
[2018-10-16] MEDS: TAMSULOSIN (SR) 0.4 MG CAP PO SCH (20:04)
--- NOTE | 2018-10-16 23:05 | CONS ---
Assessment/Plan Assessment/Plan Hospital Course (Demo Recall) 73 yom w/ CAD (hx of AWMI, PCI of LAD ~ 3 yrs ago), ICM, CKD (creatinine 1.8 in 2017), COPD, PAD (s/p SFA stent) and other issues who presented with respiratory distress. Etiology of respiratory distress is not clear. extubated now. doing well. Continue aspirin and plavix. Continue coreg (as bp allows) and statin. Cr improving, cont lasix as tolerated. Consultation Date/Type/Reason Admit Date/Time Oct 13, 2018 at 12:54 Initial Consult Date Date/Time of Note DATE: 10/16/18 TIME: 23:02 24 HR Interval Summary Free Text/Dictation seen this am, doing well. extubated, taking liquids. pt denies any current chest pain + cough, no sob at rest. on o2. no palpitaitons tele: NSR, pacs/pvcs no arrhythmia Detailed Summary Eyes: no complaints ENT: no complaints Respiratory: cough Cardiovascular: no complaints Exam/Review of Systems Exam Vitals Vital Signs Date Temp Pulse Resp B/P (MAP) Pulse Ox O2 O2 Flow FiO2 Time Delivery Rate 10/16/18 97.4 78 18 140/76 95 21:43 (97) 10/16/18 Nasal 2.0 20:20 Cannula 10/16/18 21 07:53 Intake and Output 10/15/18 10/15/18 10/16/18 1515:00 23:00 07:00 IntakeIntake Total 50 ml 290 ml 220 ml OutputOutput Total 135 ml 290 ml 483 ml BalanceBalance -85 ml 0 ml -263 ml Exam Exam Constitutional: a_ox3 Neck: other (supple, difficult to assess JVP) Respiratory: other (mostly clear anteriorly, decrease BS at bases) Cardiovascular: regular rate and rhythm; No murmurs/extra sounds Gastrointestinal: soft Neurological: other (sedated) Results Result Diagram: 10/16/188 10/16/18427 Results 24hrs Laboratory Tests Test 10/16/18 04:28 White Blood Count 12.5 H Red Blood Count 4.11 L Hemoglobin 12.8 L Hematocrit 38.7 L Mean Corpuscular Volume 94.2 Mean Corpuscular Hemoglobin 31.1 Mean Corpuscular Hemoglobin Concent 33.1 Red Cell Distribution Width 14.3 Platelet Count 156 Mean Platelet Volume 10.3 Immature Granulocytes % 0.600 H Neutrophils % 92.3 H Lymphocytes % 2.6 L Monocytes % 4.4 Eosinophils % 0.0 Basophils % 0.1 Nucleated Red Blood Cells % 0.0 Immature Granulocytes # 0.080 H Neutrophils # 11.6 H Lymphocytes # 0.3 L Monocytes # 0.6 Eosinophils # 0.0 Basophils # 0.0 Nucleated Red Blood Cells # 0.0 Sodium Level 140 Potassium Level 4.2 Chloride Level 106 Carbon Dioxide Level 24 Anion Gap 10 Blood Urea Nitrogen 57 H Creatinine 1.92 H Est Glomerular Filtrat Rate mL/min Glucose Level 147 # Calcium Level 8.4 Phosphorus Level 3.6 # Magnesium Level 2.3 Imaging Imaging cxr report reviewed in emr Medications Medication Current Medications Nitroglycerin (Nitroglycerin (Sl Tab) 0.4 Mg) 1 tab Q5M UP TO 3 DOSES PRN SL CHEST PAIN Last administered on 10/13/18 11:15; Admin Dose 1 TAB; Start 10/13/18 at 11:30 IV Flush (NS 3 ml) 3 ml PER PROTOCOL IV ; Start 10/13/18 at 15:00 Ondansetron HCl (Zofran Inj) 4 mg Q6H PRN IV NAUSEA/VOMITING; Start 10/13/18 at 15:00 Vancomycin HCl (Vanco Iv Per Pharmacy) VANCOMYCIN PER PHARMACY PER PROTOCOL XX ; Start 10/13/18 at 15:30 Piperacillin Sod/ Tazobactam Sod 50 ml @ 100 mls/hr Q6 IVPB Last administered on 10/16/18 17:28; Admin Dose 100 MLS/HR; Start 10/13/18 at 18:00 Atorvastatin Calcium (Lipitor) 80 mg QHS PO Last administered on 10/16/18 20:02; Admin Dose 80 MG; Start 10/13/18 at 21:00 Carvedilol (Coreg) 6.25 mg BID PO Last administered on 10/16/18 20:03; Admin Dose 6.25 MG; Start 10/13/18 at 21:00 Cilostazol (Pletal) 100 mg BID PO Last administered on 10/16/18 22:16; Admin Dose 100 MG; Start 10/13/18 at 21:00 Clopidogrel Bisulfate (plaVIX) 75 mg DAILY PO Last administered on 10/16/18 09:02; Admin Dose 75 MG; Start 10/14/18 at 09:00 Levothyroxine Sodium (Synthroid) 88 mcg BEFORE BREAKFAST PO Last administered on 10/16/18 06:02; Admin Dose 88 MCG; Start 10/14/18 at 07:00 Pentoxifylline (Trental) 400 mg TID PO ; Start 10/13/18 at 21:00; Status Hold Tamsulosin HCl (Flomax) 0.4 mg HS PO Last administered on 10/16/18 20:04; Admin Dose 0.4 MG; Start 10/13/18 at 21:00 Heparin Sodium (Porcine) (Heparin (5000 Units/1ml)) 5,000 unit BID SC Last administered on 10/16/18 20:05; Admin Dose 5,000 UNIT; Start 10/14/18 at 21:00 Vancomycin HCl 250 ml @ 125 mls/hr Q48H IVPB Last administered on 10/16/18 06:02; Admin Dose 125 MLS/HR; Start 10/16/18 at 06:00 Methylprednisolone Sodium Succinate (Solu-Medrol) 40 mg Q12 IV Last administered on 10/16/18 20:02; Admin Dose 40 MG; Start 10/15/18 at 21:00 Albuterol/ Ipratropium (Duoneb) 3 ml Q6HWA RESP THERAPY HHN Last administered on 10/16/18 20:17; Admin Dose 3 ML; Start 10/15/18 at 14:00 Arformoterol Tartrate (Brovana (Neb)) 2 ml Q12H RESP THERAPY NEB Last administered on 10/16/18 20:17; Admin Dose 2 ML; Start 10/15/18 at 12:30 Furosemide (Lasix) 20 mg DAILY PO Last administered on 10/16/18 09:02; Admin Dose 20 MG; Start 10/16/18 at 09:00 Pantoprazole (Protonix Tab) 40 mg DAILY@06 PO ; Start 10/17/18 at 06:00 TASNEEM ANDERSON Oct 16, 2018 23:05
[2018-10-17] VITALS (12 sets, daily range): BP systolic 124–151; BP diastolic 71–85; PULSE 68–88; RESP 18–19
[2018-10-17] MEDS: PANTOPRAZOLE (EC) 40 MG TAB PO SCH (05:21)
[2018-10-17] MEDS: PIPER-TAZO 2.25 GM (PMX) 50 ML IVPB SCH ×2 (05:22→11:26)
[2018-10-17] MEDS: LEVOTHYROXINE 88 MCG TAB PO SCH (06:18)
[2018-10-17] MEDS: ALBUTEROL/IPRATROPIUM (NEB) 3 ML AMP HHN SCH ×3 (08:00→20:23)
[2018-10-17] MEDS: HEPARIN 5,000 UNIT/1 ML VIAL SC SCH ×2 (08:54→20:55)
[2018-10-17] MEDS: METHYLPREDNISOLONE 40 MG INJ IV SCH ×2 (08:55→20:50)
[2018-10-17] MEDS: FUROSEMIDE 20 MG TAB PO SCH (08:55)
[2018-10-17] MEDS: CLOPIDOGREL 75 MG TAB PO SCH (08:56)
[2018-10-17] MEDS: CILOSTAZOL 100 MG TAB PO SCH ×2 (08:56→20:51)
--- NOTE | 2018-10-17 09:01 | PN ---
DATE: 10/17/2018 SUBJECTIVE: The patient is stable, no events overnight. OBJECTIVE: VITAL SIGNS: Blood pressure is 137/78, pulse 68, respirations 18, temperature 98.7. HEENT: Head is normocephalic. NECK: Supple. HEART: Regular rate. LUNGS: Show diminished breath sounds at the base. ABDOMEN: Soft, nontender to palpation without rebound or guarding. EXTREMITIES: Negative for clubbing, cyanosis, no edema. DERMATOLOGIC: No rashes. MUSCULOSKELETAL: No joint effusion. NEUROLOGIC: No change in exam. MEDICATIONS: The patient's medications have been reviewed. LABORATORY DATA: From 10/16/2018 was reviewed. Laboratory data 10/17/2018 is pending. ASSESSMENT AND PLAN: 1. Nonoliguric acute kidney injury with unknown baseline creatinine. Etiology of acute kidney injur y is secondary to hemodynamics, possible cardiorenal syndrome, tubular injury. The patient's renal f unction has slowly been improving. Continue current treatment plan, supportive care, renally dose al l medicines. 2. Anemia. Monitor hemoglobin and hematocrit levels. 3. Mineral bone disorder, monitor calcium and phosphorus levels. 4. Acute hypoxemic respiratory failure secondary to chronic obstructive pulmonary disease exacerbati on and congestive heart failure. Continue medical management. Continue nebulizers. 5. History of coronary artery disease. Continue medical management. 6. Acute on chronic heart failure. The patient appears near euvolemic. Continue low dose diuretic therapy, monitor renal function closely. 7. Acute encephalopathy, improving. 8. Peripheral vascular disease. Continue current treatment plan. 9. Hypertension. Continue current blood pressure regimen. Dictated By: BRET URIARTE/LISSETT Conf#: [id number] DID#: [id number] CC: TASNEEM ANDERSON MD; PETER GLEASON MD; DOLORES LOWERY;*EndCC*
--- NOTE | 2018-10-17 11:44 | CONS ---
Assessment/Plan Assessment/Plan Hospital Course (Demo Recall) 73 yom w/ CAD (hx of AWMI, PCI of LAD ~ 3 yrs ago), ICM, CKD (creatinine 1.8 in 2017), COPD, PAD (s/p SFA stent) and other issues who presented with respiratory distress. Etiology of respiratory distress possibly copd/pneumonia. now. extubated now. doing well. Continue aspirin and plavix. Continue coregand statin. Cr improving, cont lasix Consultation Date/Type/Reason Admit Date/Time Oct 13, 2018 at 12:54 Initial Consult Date Date/Time of Note DATE: 10/17/18 TIME: 11:35 24 HR Interval Summary Free Text/Dictation doing well transferred to floor. states walking in room, no cp/sob. remains on o2 with cough, minimal sputum. no fevers, chills. sweats tele reviewed nsr, no events. Detailed Summary Eyes: no complaints ENT: no complaints Respiratory: cough Cardiovascular: no complaints Gastrointestinal: no complaints Exam/Review of Systems Exam Vitals Vital Signs Date Temp Pulse Resp B/P (MAP) Pulse Ox O2 O2 Flow FiO2 Time Delivery Rate 10/17/18 98.5 73 18 145/85 95 11:12 (105) 10/17/18 Nasal 2.0 08:15 Cannula 10/16/18 21 07:53 Intake and Output 10/16/18 10/16/18 10/17/18 1515:00 23:00 07:00 IntakeIntake Total 500 ml 320 ml 290 ml OutputOutput Total 860 ml 605 ml 600 ml BalanceBalance -360 ml -285 ml -310 ml Exam Constitutional: a_ox3 Neck: other (supple, difficult to assess JVP) Respiratory: other (mostly clear anteriorly, decrease BS at bases) Cardiovascular: regular rate and rhythm; No murmurs/extra sounds Gastrointestinal: soft Neurological: other (sedated) Results Result Diagram: 10/17/1815 10/17/1815 Results 24hrs Laboratory Tests Test 10/17/18 05:15 White Blood Count 10.1 Red Blood Count 3.98 L Hemoglobin 12.6 L Hematocrit 37.7 L Mean Corpuscular Volume 94.7 Mean Corpuscular Hemoglobin 31.7 Mean Corpuscular Hemoglobin Concent 33.4 Red Cell Distribution Width 13.9 Platelet Count 141 Mean Platelet Volume 10.5 H Immature Granulocytes % 0.700 H Neutrophils % 91.7 H Lymphocytes % 2.5 L Monocytes % 4.9 Eosinophils % 0.1 Basophils % 0.1 Nucleated Red Blood Cells % 0.0 Immature Granulocytes # 0.070 H Neutrophils # 9.3 H Lymphocytes # 0.3 L Monocytes # 0.5 Eosinophils # 0.0 Basophils # 0.0 Nucleated Red Blood Cells # 0.0 Sodium Level 139 Potassium Level 3.8 Chloride Level 107 Carbon Dioxide Level 25 Anion Gap 7 Blood Urea Nitrogen 44 #H Creatinine 1.56 H Est Glomerular Filtrat Rate mL/min Glucose Level 145 Calcium Level 8.5 Phosphorus Level 2.9 Magnesium Level 2.1 Imaging Imaging cxr report reviewed in emr Medications Medication Current Medications Nitroglycerin (Nitroglycerin (Sl Tab) 0.4 Mg) 1 tab Q5M UP TO 3 DOSES PRN SL CHEST PAIN Last administered on 10/13/18 11:15; Admin Dose 1 TAB; Start 10/13/18 at 11:30 IV Flush (NS 3 ml) 3 ml PER PROTOCOL IV ; Start 10/13/18 at 15:00 Ondansetron HCl (Zofran Inj) 4 mg Q6H PRN IV NAUSEA/VOMITING; Start 10/13/18 at 15:00 Vancomycin HCl (Vanco Iv Per Pharmacy) VANCOMYCIN PER PHARMACY PER PROTOCOL XX ; Start 10/13/18 at 15:30 Piperacillin Sod/ Tazobactam Sod 50 ml @ 100 mls/hr Q6 IVPB Last administered on 10/17/18 11:26; Admin Dose 100 MLS/HR; Start 10/13/18 at 18:00 Atorvastatin Calcium (Lipitor) 80 mg QHS PO Last administered on 10/16/18 20:02; Admin Dose 80 MG; Start 10/13/18 at 21:00 Carvedilol (Coreg) 6.25 mg BID PO Last administered on 10/17/18 08:56; Admin Dose 6.25 MG; Start 10/13/18 at 21:00 Cilostazol (Pletal) 100 mg BID PO Last administered on 10/17/18 08:56; Admin Dose 100 MG; Start 10/13/18 at 21:00 Clopidogrel Bisulfate (plaVIX) 75 mg DAILY PO Last administered on 10/17/18 08:56; Admin Dose 75 MG; Start 10/14/18 at 09:00 Levothyroxine Sodium (Synthroid) 88 mcg BEFORE BREAKFAST PO Last administered on 10/17/18 06:18; Admin Dose 88 MCG; Start 10/14/18 at 07:00 Pentoxifylline (Trental) 400 mg TID PO ; Start 10/13/18 at 21:00; Status Hold Tamsulosin HCl (Flomax) 0.4 mg HS PO Last administered on 10/16/18 20:04; Admin Dose 0.4 MG; Start 10/13/18 at 21:00 Heparin Sodium (Porcine) (Heparin (5000 Units/1ml)) 5,000 unit BID SC Last administered on 10/17/18 08:54; Admin Dose 5,000 UNIT; Start 10/14/18 at 21:00 Vancomycin HCl 250 ml @ 125 mls/hr Q48H IVPB Last administered on 10/16/18 06:02; Admin Dose 125 MLS/HR; Start 10/16/18 at 06:00 Methylprednisolone Sodium Succinate (Solu-Medrol) 40 mg Q12 IV Last administered on 10/17/18 08:55; Admin Dose 40 MG; Start 10/15/18 at 21:00 Albuterol/ Ipratropium (Duoneb) 3 ml Q6HWA RESP THERAPY HHN Last administered on 10/16/18 20:17; Admin Dose 3 ML; Start 10/15/18 at 14:00 Arformoterol Tartrate (Brovana (Neb)) 2 ml Q12H RESP THERAPY NEB Last administered on 10/16/18 20:17; Admin Dose 2 ML; Start 10/15/18 at 12:30 Furosemide (Lasix) 20 mg DAILY PO Last administered on 10/17/18 08:55; Admin Dose 20 MG; Start 10/16/18 at 09:00 Pantoprazole (Protonix Tab) 40 mg DAILY@06 PO Last administered on 10/17/18 05:21; Admin Dose 40 MG; Start 10/17/18 at 06:00 TASNEEM ANDERSON Oct 17, 2018 11:44
[2018-10-17] MEDS: ARFORMOTEROL TARTRATE 15MCG/2 ML AMP NEB SCH ×2 (11:46→20:33)
--- NOTE | 2018-10-17 11:51 | PN ---
Date/Time of Note Date/Time of Note DATE: 10/17/18 TIME: 11:48 Assessment/Plan VTE Prophylaxis Risk score (from Ns)>0 risk: 7 SCD applied (from [facility]): No SCD contraindicated: other Pharmacological prophylaxis: heparin Lines/Catheters IV Catheter Type (from [facility] Saline Lock Urinary Cath still in place: Yes Reason Cath still needed: urinary retention Assessment/Plan Hospital Course S: Patient out of the intensive care unit since yesterday. Seen by renal team this morning. Presently working with physical therapy. No acute events overn ight. O: VS - see below PE: Gen: Elderly man well developed, lying in bed Eyes: Normal pupils nonreactive to light, no icterus HEENT: ET tube in place, moist mucous membranes Neck: supple Card: Distant heart sounds. Regular rate and rhythm Pulm: Mechanical breath sounds throughout, no crackles or rales. Abd: Soft, nondistended. Neuro: No focal deficits 2D echo: Conclusions: 1. Severe reduced left ventricular function with EF 20-25%. While the hypokinesis is global, it is most severe in the interventricular septum, inferior wall, posterior wall and apical 1/2 of the anterior wall, lateral wall and anteroseptum. The basal 1/2 of the lateral wall and anterior wall has the best function (low normal to mild hypokinesis). 2. The right ventricle is borderline enlarged with low normal function. 3. Moderate to severe mitral regurgitation. 4. RVSP is 62 mmHg (moderate to severely elevated). 5. Moderate tricuspid regurgitation. 6. Trace pericardial effusion. 7. Abnormal diastolic function (c/w pseudonormalization). Assessment/Plan: 73 yo man with CHF, history of RI, PAD, presents with acute respiratory failure. #Acute respiratory failure-again extubated yesterday. Associated with pulmonary edema but otherwise not much fluid overload, possibly secondary to COPD. Patient received IV steroids, pulmonary Dr. Oleary following. PE: Currently with NOHEMY so no CTPA. Low suspicion for PE currently. -Monitor, continue IV steroids with weaning per pulmonary recommendations - Will empirically continue Abx, follow final culture results -Continue PT and OT, follow-up with further recommendations # CHF -slowly improving now, Echo results reviewed EF = 20-25%; ACS: Initial trop negative (0.1), EKG with right bundle. Cardiology team on the case. - continue ASA/plavix, now p.o. Lasix - Continue Coreg, follow-up cardiology recommendations #NOHEMY on CKD -also had Hyperkalemia- baseline 1.8 in 2017, creatinine slowly trending down the last 2-3 days. May just be progression of CKD. Potassium level stable -Monitor, follow-up renal recommendations #PAD- No evidence of acute limb ischemia - Continue home cilostazol and pentoxifylline DVT: heparin GI: protonix Daughter (Ioana): [phone] Dispo: Likely home in the next 24-48 hours once cleared by data processing consultant teams. May need snf facility placement versus home health with PT? We will check with final PT recommendations before ordering this. Result Diagram: 10/17/1851410/17/1815 Results 24hrs Laboratory Tests Test 10/17/18 05:15 White Blood Count 10.1 Red Blood Count 3.98 L Hemoglobin 12.6 L Hematocrit 37.7 L Mean Corpuscular Volume 94.7 Mean Corpuscular Hemoglobin 31.7 Mean Corpuscular Hemoglobin Concent 33.4 Red Cell Distribution Width 13.9 Platelet Count 141 Mean Platelet Volume 10.5 H Immature Granulocytes % 0.700 H Neutrophils % 91.7 H Lymphocytes % 2.5 L Monocytes % 4.9 Eosinophils % 0.1 Basophils % 0.1 Nucleated Red Blood Cells % 0.0 Immature Granulocytes # 0.070 H Neutrophils # 9.3 H Lymphocytes # 0.3 L Monocytes # 0.5 Eosinophils # 0.0 Basophils # 0.0 Nucleated Red Blood Cells # 0.0 Sodium Level 139 Potassium Level 3.8 Chloride Level 107 Carbon Dioxide Level 25 Anion Gap 7 Blood Urea Nitrogen 44 #H Creatinine 1.56 H Est Glomerular Filtrat Rate mL/min Glucose Level 145 Calcium Level 8.5 Phosphorus Level 2.9 Magnesium Level 2.1 Exam/Review of Systems Exam Vitals Vital Signs Date Temp Pulse Resp B/P (MAP) Pulse Ox O2 O2 Flow FiO2 Time Delivery Rate 10/17/18 2.0 11:45 10/17/18 98.5 73 18 145/85 95 11:12 (105) 10/17/18 Nasal 08:15 Cannula 10/16/18 21 07:53 Intake and Output 10/16/18 10/16/18 10/17/18 1515:00 23:00 07:00 IntakeIntake Total 500 ml 320 ml 290 ml OutputOutput Total 860 ml 605 ml 600 ml BalanceBalance -360 ml -285 ml -310 ml Results Results 24hrs Laboratory Tests Test 10/17/18 05:15 White Blood Count 10.1 Red Blood Count 3.98 L Hemoglobin 12.6 L Hematocrit 37.7 L Mean Corpuscular Volume 94.7 Mean Corpuscular Hemoglobin 31.7 Mean Corpuscular Hemoglobin Concent 33.4 Red Cell Distribution Width 13.9 Platelet Count 141 Mean Platelet Volume 10.5 H Immature Granulocytes % 0.700 H Neutrophils % 91.7 H Lymphocytes % 2.5 L Monocytes % 4.9 Eosinophils % 0.1 Basophils % 0.1 Nucleated Red Blood Cells % 0.0 Immature Granulocytes # 0.070 H Neutrophils # 9.3 H Lymphocytes # 0.3 L Monocytes # 0.5 Eosinophils # 0.0 Basophils # 0.0 Nucleated Red Blood Cells # 0.0 Sodium Level 139 Potassium Level 3.8 Chloride Level 107 Carbon Dioxide Level 25 Anion Gap 7 Blood Urea Nitrogen 44 #H Creatinine 1.56 H Est Glomerular Filtrat Rate mL/min Glucose Level 145 Calcium Level 8.5 Phosphorus Level 2.9 Magnesium Level 2.1 Medications Medication Current Medications Nitroglycerin (Nitroglycerin (Sl Tab) 0.4 Mg) 1 tab Q5M UP TO 3 DOSES PRN SL CHEST PAIN Last administered on 10/13/18at 11:15; Admin Dose 1 TAB; Start 10/13/18 at 11:30 IV Flush (NS 3 ml) 3 ml PER PROTOCOL IV ; Start 10/13/18 at 15:00 Ondansetron HCl (Zofran Inj) 4 mg Q6H PRN IV NAUSEA/VOMITING; Start 10/13/18 at 15:00 Vancomycin HCl (Vanco Iv Per Pharmacy) VANCOMYCIN PER PHARMACY PER PROTOCOL XX ; Start 10/13/18 at 15:30 Piperacillin Sod/ Tazobactam Sod 50 ml @ 100 mls/hr Q6 IVPB Last administered on 10/17/18at 11:26; Admin Dose 100 MLS/HR; Start 10/13/18 at 18:00 Atorvastatin Calcium (Lipitor) 80 mg QHS PO Last administered on 10/16/18at 20:02; Admin Dose 80 MG; Start 10/13/18 at 21:00 Carvedilol (Coreg) 6.25 mg BID PO Last administered on 10/17/18 08:56; Admin Dose 6.25 MG; Start 10/13/18 at 21:00 Cilostazol (Pletal) 100 mg BID PO Last administered on 10/17/18 08:56; Admin Dose 100 MG; Start 10/13/18 at 21:00 Clopidogrel Bisulfate (plaVIX) 75 mg DAILY PO Last administered on 10/17/18 08:56; Admin Dose 75 MG; Start 10/14/18 at 09:00 Levothyroxine Sodium (Synthroid) 88 mcg BEFORE BREAKFAST PO Last administered on 10/17/18 06:18; Admin Dose 88 MCG; Start 10/14/18 at 07:00 Pentoxifylline (Trental) 400 mg TID PO ; Start 10/13/18 at 21:00; Status Hold Tamsulosin HCl (Flomax) 0.4 mg HS PO Last administered on 10/16/18 20:04; Admin Dose 0.4 MG; Start 10/13/18 at 21:00 Heparin Sodium (Porcine) (Heparin (5000 Units/1ml)) 5,000 unit BID SC Last administered on 10/17/18 08:54; Admin Dose 5,000 UNIT; Start 10/14/18 at 21:00 Vancomycin HCl 250 ml @ 125 mls/hr Q48H IVPB Last administered on 10/16/18 06:02; Admin Dose 125 MLS/HR; Start 10/16/18 at 06:00 Methylprednisolone Sodium Succinate (Solu-Medrol) 40 mg Q12 IV Last admini stered on 10/17/18 08:55; Admin Dose 40 MG; Start 10/15/18 at 21:00 Albuterol/ Ipratropium (Duoneb) 3 ml Q6HWA RESP THERAPY HHN Last administered on 10/16/18 20:17; Admin Dose 3 ML; Start 10/15/18 at 14:00 Arformoterol Tartrate (Brovana (Neb)) 2 ml Q12H RESP THERAPY NEB Last administered on 10/16/18 20:17; Admin Dose 2 ML; Start 10/15/18 at 12:30 Furosemide (Lasix) 20 mg DAILY PO Last administered on 2/27/19at 08:55; Admin Dose 20 MG; Start 10/16/18 at 09:00 Pantoprazole (Protonix Tab) 40 mg DAILY@06 PO Last administered on 10/17/18at 05:21; Admin Dose 40 MG; Start 10/17/18 at 06:00 DOLORES LOWERY Oct 17, 2018 11:51
--- NOTE | 2018-10-17 14:33 | CONS ---
Consult Date/Type/Reason Admit Date/Time Oct 13, 2018 at 12:54 Initial Consult Date Type of Consult Pulmonary Date/Time of Note DATE: 10/17/18 TIME: 14:32 Subjective Better, awake alert oriented, less shortness of breath Objective Vital Signs Date Temp Pulse Resp B/P (MAP) Pulse Ox O2 O2 Flow FiO2 Time Delivery Rate 10/17/18 70 20 98 Nasal 2.0 13:32 Cannula 10/17/18 98.5 145/85 11:12 (105) 10/16/18 07:53 Intake and Output 10/16/18 10/16/18 10/17/18 1515:00 23:00 07:00 IntakeIntake Total 500 ml 320 ml 290 ml OutputOutput Total 860 ml 605 ml 600 ml BalanceBalance -360 ml -285 ml -310 ml Exam GENERAL: Elderly gentleman comfortable at rest no acute distress VITAL SIGNS: per chart NECK: Supple. No JVD or lymphadenopathy. CARDIAC EXAM: S1, S2. No added sounds or murmurs. CHEST: clear bilaterally, No added sounds, rales or wheezes ABDOMEN: Soft, nontender. No guarding or rebound. EXTREMITIES: No cyanosis, clubbing or edema. NEUROLOGIC: Generalized weakness. No focal deficits. Vent Setting Ventilator Support Mode: CPAP, PS Fraction of Inspired Oxygen pe: 21 Positive End Expiratory Pressu: 5.0 Results/Medications Result Diagram: 10/17/1851410/17/1815 Results 24 hrs Laboratory Tests Test 10/17/18 05:15 White Blood Count 10.1 Red Blood Count 3.98 L Hemoglobin 12.6 L Hematocrit 37.7 L Mean Corpuscular Volume 94.7 Mean Corpuscular Hemoglobin 31.7 Mean Corpuscular Hemoglobin Concent 33.4 Red Cell Distribution Width 13.9 Platelet Count 141 Mean Platelet Volume 10.5 H Immature Granulocytes % 0.700 H Neutrophils % 91.7 H Lymphocytes % 2.5 L Monocytes % 4.9 Eosinophils % 0.1 Basophils % 0.1 Nucleated Red Blood Cells % 0.0 Immature Granulocytes # 0.070 H Neutrophils # 9.3 H Lymphocytes # 0.3 L Monocytes # 0.5 Eosinophils # 0.0 Basophils # 0.0 Nucleated Red Blood Cells # 0.0 Sodium Level 139 Potassium Level 3.8 Chloride Level 107 Carbon Dioxide Level 25 Anion Gap 7 Blood Urea Nitrogen 44 #H Creatinine 1.56 H Est Glomerular Filtrat Rate mL/min Glucose Level 145 Calcium Level 8.5 Phosphorus Level 2.9 Magnesium Level 2.1 Medications Current Medications Nitroglycerin (Nitroglycerin (Sl Tab) 0.4 Mg) 1 tab Q5M UP TO 3 DOSES PRN SL CHEST PAIN Last administered on 10/13/18 11:15; Admin Dose 1 TAB; Start 10/13/18 at 11:30 IV Flush (NS 3 ml) 3 ml PER PROTOCOL IV ; Start 10/13/18 at 15:00 Ondansetron HCl (Zofran Inj) 4 mg Q6H PRN IV NAUSEA/VOMITING; Start 10/13/18 at 15:00 Atorvastatin Calcium (Lipitor) 80 mg QHS PO Last administered on 10/16/18 20:02; Admin Dose 80 MG; Start 10/13/18 at 21:00 Carvedilol (Coreg) 6.25 mg BID PO Last administered on 10/17/18 08:56; Admin Dose 6.25 MG; Start 10/13/18 at 21:00 Cilostazol (Pletal) 100 mg BID PO Last administered on 10/17/18 08:56; Admin Dose 100 MG; Start 10/13/18 at 21:00 Clopidogrel Bisulfate (plaVIX) 75 mg DAILY PO Last administered on 10/17/18 08:56; Admin Dose 75 MG; Start 10/14/18 at 09:00 Levothyroxine Sodium (Synthroid) 88 mcg BEFORE BREAKFAST PO Last administered on 10/17/18 06:18; Admin Dose 88 MCG; Start 10/14/18 at 07:00 Pentoxifylline (Trental) 400 mg TID PO ; Start 10/13/18 at 21:00; Status Hold Tamsulosin HCl (Flomax) 0.4 mg HS PO Last administered on 10/16/18 20:04; Admin Dose 0.4 MG; Start 10/13/18 at 21:00 Heparin Sodium (Porcine) (Heparin (5000 Units/1ml)) 5,000 unit BID SC Last administered on 10/17/18 08:54; Admin Dose 5,000 UNIT; Start 10/14/18 at 21:00 Methylprednisolone Sodium Succinate (Solu-Medrol) 40 mg Q12 IV Last administered on 10/17/18 08:55; Admin Dose 40 MG; Start 10/15/18 at 21:00 Albuterol/ Ipratropium (Duoneb) 3 ml Q6HWA RESP THERAPY HHN Last administered on 10/17/18 13:32; Admin Dose 3 ML; Start 10/15/18 at 14:00 Arformoterol Tartrate (Brovana (Neb)) 2 ml Q12H RESP THERAPY NEB Last admi nistered on 10/17/18 11:46; Admin Dose 2 ML; Start 10/15/18 at 12:30 Furosemide (Lasix) 20 mg DAILY PO Last administered on 10/17/18 08:55; Admin Dose 20 MG; Start 10/16/18 at 09:00 Pantoprazole (Protonix Tab) 40 mg DAILY@06 PO Last administered on 10/17/18 05:21; Admin Dose 40 MG; Start 10/17/18 at 06:00 Miscellaneous Information (*Rx Drug Level Order Reminder*) VANCO TROUGH ON ... ONCE ONCE XX ; Start 10/18/18 at 05:00; Stop 10/18/18 at 05:01 Levofloxacin/ Dextrose 150 ml @ 100 mls/hr Q24H IVPB ; Start 10/17/18 at 21:00 Assessment/Plan Hospital Course (Demo Recall) IMPRESSION: 1. Likely acute hypoxemic respiratory failure secondary to chronic obstructive pulmonary disease exacerbation. Remained stable post extubation 2. Peripheral arterial disease. 3. Elevated D-dimer likely combination of acute on chronic renal failure and peripheral arterial disease. Recommendations 1. Cardiology evaluation. 2. Steroid taper. 3. Bronchodilators. 4. Post extubation incentive spirometry bronchodilators, advance diet speech therapy evaluation and PT eval. 5. DVT and GI prophylaxis. 6. Encourage OOB. will likely need home health. Discussed with patient at length. WINTER DE LEON MD, FCCP Oct 17, 2018 14:33
[2018-10-17] MEDS: ATORVASTATIN 80 MG TAB PO SCH (20:50)
[2018-10-17] MEDS: TAMSULOSIN (SR) 0.4 MG CAP PO SCH (20:51)
[2018-10-17] MEDS ORDERED: LEVOFLOXACIN 750MG/D5W (PMX) 150 ML IVPB SCH (21:00)
[2018-10-18] VITALS (10 sets, daily range): BP systolic 132–155; BP diastolic 72–88; PULSE 68–105; RESP 18–19
[2018-10-18] MEDS: PANTOPRAZOLE (EC) 40 MG TAB PO SCH (05:51)
[2018-10-18] MEDS: LEVOTHYROXINE 88 MCG TAB PO SCH (06:06)
[2018-10-18] MEDS: ARFORMOTEROL TARTRATE 15MCG/2 ML AMP NEB SCH (08:27)
[2018-10-18] MEDS: ALBUTEROL/IPRATROPIUM (NEB) 3 ML AMP HHN SCH ×2 (08:27→14:17)
--- NOTE | 2018-10-18 08:34 | PN ---
DATE: 10/18/2018 SUBJECTIVE: Patient stable, no events overnight. OBJECTIVE: VITAL SIGNS: Blood pressure is 150/88, pulse 87, respirations 18, temperature 98.0. HEENT: Head is normocephalic. NECK: Supple. HEART: Regular rate. LUNGS: Show diminished breath sounds at the base. ABDOMEN: Soft, nontender to palpation without rebound or guarding. EXTREMITIES: Negative for clubbing, cyanosis, no edema. DERMATOLOGIC: No rashes. MUSCULOSKELETAL: No joint effusion. NEUROLOGIC: No change in exam. MEDICATIONS: The patient's medications were reviewed. LABORATORY DATA: Shows sodium 138, potassium 4.0, BUN 35, creatinine 1.46. White count 10.9, hemogl obin 13.6, platelet count 145. ASSESSMENT AND PLAN: 1. Nonoliguric acute kidney injury with unknown baseline creatinine. Etiology of acute kidney injur y is secondary to hemodynamics, possible cardiorenal syndrome. The patient's renal function has been improving. Continue current treatment plan, supportive care. Continue low-dose diuretic therapy. 2. Anemia. Continue to monitor hemoglobin and hematocrit levels. 3. Mineral bone disorder, monitor calcium and phosphorus levels. 4. Acute hypoxic respiratory failure secondary to chronic obstructive pulmonary disease exacerbation , congestive heart failure. The patient is clinically improving. Continue current medical managemen t. 5. Coronary artery disease. Continue current treatment plan. 6. Acute on chronic heart failure. The patient is clinically improving. Continue current medical m anagement. 7. Acute encephalopathy, resolving. 8. Peripheral vascular disease. Continue current treatment plan. 9. Hypertension. Continue current blood pressure regimen. Dictated By: BRET URIARTE/LISSETT Conf#: [id number] DID#: [id number] CC: PETER GLEASON MD;*EndCC*
[2018-10-18] MEDS: FUROSEMIDE 20 MG TAB PO SCH (09:11)
[2018-10-18] MEDS: CLOPIDOGREL 75 MG TAB PO SCH (09:11)
[2018-10-18] MEDS: CILOSTAZOL 100 MG TAB PO SCH (09:11)
[2018-10-18] MEDS: METHYLPREDNISOLONE 40 MG INJ IV SCH (09:14)
[2018-10-18] MEDS: HEPARIN 5,000 UNIT/1 ML VIAL SC SCH (09:16)
--- NOTE | 2018-10-18 12:40 | CONS ---
Consult Date/Type/Reason Admit Date/Time Oct 13, 2018 at 12:54 Initial Consult Date Type of Consult Pulmonary Date/Time of Note DATE: 10/18/18 TIME: 12:39 Subjective Continues to improve with less shortness of breath today. Objective Vital Signs Date Temp Pulse Resp B/P (MAP) Pulse Ox O2 O2 Flow FiO2 Time Delivery Rate 10/18/18 105 12:06 10/18/18 98.0 18 132/72 97 Nasal 11:14 (92) Cannula 10/18/18 2.0 07:51 10/18/18 28 04:26 Intake and Output 10/17/18 10/17/18 10/18/18 1515:00 23:00 07:00 IntakeIntake Total 50 ml 800 ml 750 ml OutputOutput Total 1400 ml 900 ml BalanceBalance 50 ml -600 ml -150 ml Exam GENERAL: Elderly gentleman comfortable at rest no acute distress VITAL SIGNS: per chart NECK: Supple. No JVD or lymphadenopathy. CARDIAC EXAM: S1, S2. No added sounds or murmurs. CHEST: clear bilaterally, No added sounds, rales or wheezes ABDOMEN: Soft, nontender. No guarding or rebound. EXTREMITIES: No cyanosis, clubbing or edema. NEUROLOGIC: Generalized weakness. No focal deficits. Vent Setting Ventilator Support Mode: CPAP, PS Fraction of Inspired Oxygen pe: 28 Positive End Expiratory Pressu: 5.0 Results/Medications Result Diagram: 10/18/18 0537 10/18/18 0537 Results 24 hrs Laboratory Tests Test 10/18/18 05:37 White Blood Count 10.9 H Red Blood Count 4.44 L Hemoglobin 13.6 L Hematocrit 41.9 L Mean Corpuscular Volume 94.4 Mean Corpuscular Hemoglobin 30.6 Mean Corpuscular Hemoglobin Concent 32.5 Red Cell Distribution Width 14.0 Platelet Count 145 Mean Platelet Volume 10.1 Immature Granulocytes % 0.500 H Neutrophils % 90.9 H Lymphocytes % 4.1 L Monocytes % 4.4 Eosinophils % 0.0 Basophils % 0.1 Nucleated Red Blood Cells % 0.0 Immature Granulocytes # 0.050 H Neutrophils # 9.9 H Lymphocytes # 0.5 L Monocytes # 0.5 Eosinophils # 0.0 Basophils # 0.0 Nucleated Red Blood Cells # 0.0 Sodium Level 138 Potassium Level 4.0 Chloride Level 103 Carbon Dioxide Level 27 Anion Gap 8 Blood Urea Nitrogen 35 H Creatinine 1.46 H Est Glomerular Filtrat Rate mL/min Glucose Level 107 Calcium Level 8.8 Phosphorus Level 2.8 Magnesium Level 1.9 Medications Current Medications Nitroglycerin (Nitroglycerin (Sl Tab) 0.4 Mg) 1 tab Q5M UP TO 3 DOSES PRN SL CHEST PAIN Last administered on 10/13/18 11:15; Admin Dose 1 TAB; Start 10/13/18 at 11:30 IV Flush (NS 3 ml) 3 ml PER PROTOCOL IV ; Start 10/13/18 at 15:00 Ondansetron HCl (Zofran Inj) 4 mg Q6H PRN IV NAUSEA/VOMITING; Start 10/13/18 at 15:00 Atorvastatin Calcium (Lipitor) 80 mg QHS PO Last administered on 10/17/18 20:50; Admin Dose 80 MG; Start 10/13/18 at 21:00 Carvedilol (Coreg) 6.25 mg BID PO Last administered on 10/18/18 09:12; Admin Dose 6.25 MG; Start 10/13/18 at 21:00 Cilostazol (Pletal) 100 mg BID PO Last administered on 10/18/18 09:11; Admin Dose 100 MG; Start 10/13/18 at 21:00 Clopidogrel Bisulfate (plaVIX) 75 mg DAILY PO Last administered on 10/18/18 09:11; Admin Dose 75 MG; Start 10/14/18 at 09:00 Levothyroxine Sodium (Synthroid) 88 mcg BEFORE BREAKFAST PO Last administered on 10/18/18 06:06; Admin Dose 88 MCG; Start 10/14/18 at 07:00 Pentoxifylline (Trental) 400 mg TID PO ; Start 10/13/18 at 21:00; Status Hold Tamsulosin HCl (Flomax) 0.4 mg HS PO Last administered on 10/17/18 20:51; Admin Dose 0.4 MG; Start 10/13/18 at 21:00 Heparin Sodium (Porcine) (Heparin (5000 Units/1ml)) 5,000 unit BID SC Last administered on 10/18/18 09:16; Admin Dose 5,000 UNIT; Start 10/14/18 at 21:00 Methylprednisolone Sodium Succinate (Solu-Medrol) 40 mg Q12 IV Last administered on 10/18/18 09:14; Admin Dose 40 MG; Start 10/15/18 at 21:00 Albuterol/ Ipratropium (Duoneb) 3 ml Q6HWA RESP THERAPY HHN Last administered on 10/18/18 08:27; Admin Dose 3 ML; Start 10/15/18 at 14:00 Arformoterol Tartrate (Brovana (Neb)) 2 ml Q12H RESP THERAPY NEB Last administered on 10/18/18 08:27; Admin Dose 2 ML; Start 10/15/18 at 12:30 Furosemide (Lasix) 20 mg DAILY PO Last administered on 10/18/18 09:11; Admin Dose 20 MG; Start 10/16/18 at 09:00 Pantoprazole (Protonix Tab) 40 mg DAILY@06 PO Last administered on 10/18/18 05:51; Admin Dose 40 MG; Start 10/17/18 at 06:00 Levofloxacin/ Dextrose 150 ml @ 100 mls/hr Q24H IVPB Last administered on 10/17/18 20:50; Admin Dose 100 MLS/HR; Start 10/17/18 at 21:00 Assessment/Plan Hospital Course (Demo Recall) IMPRESSION: 1. Likely acute hypoxemic respiratory failure secondary to chronic obstructive pulmonary disease exacerbation. Remained stable post extubation 2. Peripheral arterial disease. 3. Elevated D-dimer likely combination of acute on chronic renal failure and peripheral arterial disease. Recommendations 1. Cardiology evaluation. 2. Steroid taper. 3. Bronchodilators. 4. Post extubation incentive spirometry bronchodilators, advance diet speech therapy evaluation and PT eval. 5. DVT and GI prophylaxis. 6. Encourage OOB. Discharge planning okay with me. Follow-up with me in the office WINTER DE LEON MD, [facility] Oct 18, 2018 12:40
--- NOTE | 2018-10-18 13:46 | PDOCDIS ---
Discharge Instructions CONDITION [id number] Patient Condition: [id number] Stable HOME CARE INSTRUCTIONS: [id number] Diet Instructions: [id number] Low Fat /Cholesterol ACTIVITY: [id number] Activity Restrictions: [id number] Slowly Increase Activity Rest between Activity Avoid heavy lifting FOLLOW UP/APPOINTMENTS Follow-up Plan Please take your medications as prescribed, see your doctor in the clinic in the next 1 week. DOLORES LOWERY Oct 18, 2018 13:46
[2018-10-18] MEDS ORDERED: LEVO750T8 PO (13:48)
--- NOTE | 2018-10-18 14:05 | DS ---
Date/Time of Note Date/Time of Note DATE: 10/18/18 TIME: 14:01 Discharge Summary Admission/Discharge Info Admit Date/Time Oct 13, 2018 at 12:54 Discharge Date/Time Discharge Diagnosis #Acute respiratory failure-again now extubated # CHF -slowly improving now, Echo results reviewed EF = 20-25% #NOHEMY on CKD - improving now #PAD- No evidence of acute limb ischemia Patient Condition: Stable Procedures 2D echo: Conclusions: 1. Severe reduced left ventricular function with EF 20-25%. While the hypokinesis is global, it is most severe in the interventricular septum, inferior wall, posterior wall and apical 1/2 of the anterior wall, lateral wall and anteroseptum. The basal 1/2 of the lateral wall and anterior wall has the best function (low normal to mild hypokinesis). 2. The right ventricle is borderline enlarged with low normal function. 3. Moderate to severe mitral regurgitation. 4. RVSP is 62 mmHg (moderate to severely elevated). 5. Moderate tricuspid regurgitation. 6. Trace pericardial effusion. 7. Abnormal diastolic function (c/w pseudonormalization). Hx of Present Illness 73 yo man with history of PA, CHF, and PAD BIBA from home for dyspnea. Patient intubated and sedated on my exam; history per and daughter. Apparently he was in his usual state of health until last night. He developed profuse sweating and had three episodes of diarrhea. But no shortness of breath, no orthopnea; was lying flat. Suddenly at 10:30 this morning he told his "I can't breathe", although he didn't appear to be in respiratory distress at the time. She asked about chest pain and he denied it. Also no cough. Ambulance was called and he was brought to the ED. At baseline patient is functional, ambulatory. He'd gone to a doctors appointment the day prior; no known changes to medications and no procedures done. History notable for PA about 3 years ago, had PCI with 2 or 3 stents placed. No open heart surgery. He also has severe peripheral arterial disease with a R femoral stent placed 2 months ago. He arrived to the ED on BiPAP in respiratory distress, afebrile, HTNsive to 180/100, P 70s-80s. Soon after arrival required intubation. CXR showed diffuse infiltrates or pulmonary edema. Labs notable for Cr 2.13 (no known baseline), K 5.8, lact 7.4, trop 0.104. Hospital Course Patient was admitted initially to intensive care unit. Initially was intubated, seen by renal, cardiology, pulmonary teams during this hospital stay. Patient was eventually able to be extubated after patient's respiratory status improved. Patient was found with low ejection fraction 20-25% and given diuresis. Afterwards patient was transferred to telemetry floor, able to ambulate with assistance after being seen by physical therapy team. Patient also treated for obstructive lung disease issues. Tolerated diet, vital signs are stable as w ell. After getting clearance from the senior management consultant teams patient will be discharged home today in improved condition. See below for full list of discharge medications. Home Meds Active Scripts Levofloxacin* (Levofloxacin*) 750 Mg Tablet, 750 MG PO DAILY for 5 Days, #5 TAB Prov:DOLORES LOWERY. 10/18/18 Reported Medications Tamsulosin Hcl* (Tamsulosin Hcl*) 0.4 Mg Cap.er.24h, 0.4 MG PO HS, CAP 10/13/18 Levothyroxine Sodium* (Levoxyl*) 88 Mcg Tablet, 88 MCG PO BEFORE BREAKFAST, #30 TAB 10/13/18 Potassium Chloride* (K-Dur*) 10 Meq Tab.prt.sr, 10 MEQ PO DAILY, TAB 10/13/18 Allopurinol* (Allopurinol*) 100 Mg Tablet, 100 MG PO DAILY, TAB 10/13/18 Clopidogrel Bisulfate (Clopidogrel) 75 Mg Tablet, 75 MG PO DAILY, #30 TAB 10/13/18 Cilostazol* (Cilostazol*) 100 Mg Tablet, 100 MG PO BID, TAB 10/13/18 Atorvastatin* (Atorvastatin*) 80 Mg Tablet, 80 MG PO QHS, #30 TAB 10/13/18 Carvedilol* (Carvedilol*) 6.25 Mg Tablet, 6.25 MG PO BID, #60 TAB 10/13/18 Albuterol Sulfate* (Proair HFA*) 8.5 Gm Hfa.aer.ad, 2 PUFF INH Q6H PRN for WHEEZING AND SOB, #1 INHALER 10/13/18 Furosemide* (Furosemide*) 40 Mg Tablet, 40 MG PO DAILY, TAB 10/13/18 Pentoxifylline* (Pentoxifylline*) 400 Mg Tablet.sa, 400 MG PO TID, TAB 10/13/18 Follow-up Plan Please take your medications as prescribed, see your doctor in the clinic in the next 1 week. Primary Care Provider Not On Staff Doctor Time spent on discharge: > 30 minutes Pending Labs Laboratory Tests Test 10/18/18 05:37 White Blood Count 10.9 10^3/ul (4.8-10.8) Red Blood Count 4.44 10^6/ul (4.70-6.10) Hemoglobin 13.6 g/dl (14.0-18.0) Hematocrit 41.9 % (42.0-52.0) Mean Corpuscular Volume 94.4 fl (82.0-101.0) Mean Corpuscular Hemoglobin 30.6 pg (29.0-33.0) Mean Corpuscular Hemoglobin Concent 32.5 g/dl (32.0-37.0) Red Cell Distribution Width 14.0 % (11.5-14.5) Platelet Count 145 10^3/UL (140-415) Mean Platelet Volume 10.1 fl (7.4-10.4) Immature Granulocytes % 0.500 % (0.001-0.429) Neutrophils % 90.9 % (39.0-77.0) Lymphocytes % 4.1 % (15.0-51.0) Monocytes % 4.4 % (0.0-11.0) Eosinophils % 0.0 % (0.0-7.0) Basophils % 0.1 % (0.0-2.0) Nucleated Red Blood Cells % 0.0 /100WBC (0.0-0.0) Immature Granulocytes # 0.050 10^3/ul (0.0-0.031) Neutrophils # 9.9 10^3/ul (1.6-7.5) Lymphocytes # 0.5 10^3/ul (0.8-2.9) Monocytes # 0.5 10^3/ul (0.3-0.9) Eosinophils # 0.0 10^3/ul (0.0-0.5) Basophils # 0.0 10^3/ul (0.0-0.1) Nucleated Red Blood Cells # 0.0 10^3/ul (0.0-0.0) Sodium Level 138 mmol/L (135-144) Potassium Level 4.0 mmol/L (3.5-5.1) Chloride Level 103 mmol/L (97-110) Carbon Dioxide Level 27 mmol/L (21-31) Anion Gap 8 (5-13) Blood Urea Nitrogen 35 mg/dl (7-20) Creatinine 1.46 mg/dl (0.61-1.24) Est Glomerular Filtrat Rate mL/min mL/min (>60) Glucose Level 107 mg/dl (70-220) Calcium Level 8.8 mg/dl (8.4-10.2) Phosphorus Level 2.8 mg/dl (2.5-4.9) Magnesium Level 1.9 mg/dl (1.7-2.5) DOLORES LOWERY Oct 18, 2018 14:05
--- NOTE | 2018-10-18 16:15 | CONS ---
Assessment/Plan Assessment/Plan Hospital Course (Demo Recall) 73 yom w/ CAD (hx of AWMI, PCI of LAD ~ 3 yrs ago), ICM, CKD (creatinine 1.8 in 2017), COPD, PAD (s/p SFA stent) and other issues who presented with respiratory distress. Etiology of respiratory distress possibly copd/pneumonia. now. extubated now. doing well. Continue aspirin and plavix. Continue coregand statin. Cr improving, cont lasix. will f/u as outpt Consultation Date/Type/Reason Admit Date/Time Oct 13, 2018 at 12:54 Initial Consult Date Date/Time of Note DATE: 10/18/18 TIME: 16:13 24 HR Interval Summary Free Text/Dictation no acute events. pt states breathing improved, walked in [place] no cp/sob. no palp/dizziness tele reviewed nsr no events Detailed Summary Eyes: no complaints ENT: no complaints Respiratory: cough Cardiovascular: no complaints Gastrointestinal: no complaints Exam/Review of Systems Exam Vitals Vital Signs Date Temp Pulse Resp B/P (MAP) Pulse Ox O2 O2 Flow FiO2 Time Delivery Rate 10/18/18 98.0 91 18 138/84 95 Room Air 15:07 (102) 10/18/18 2.0 28 14:20 Intake and Output 10/17/18 10/17/18 10/18/18 1515:00 23:00 07:00 IntakeIntake Total 50 ml 800 ml 750 ml OutputOutput Total 1400 ml 900 ml BalanceBalance 50 ml -600 ml -150 ml Exam Exam Constitutional: [id number] Neck: normal jvp Respiratory: other (mostly clear anteriorly, decrease BS at bases) Cardiovascular: regular rate and rhythm; No murmurs/extra sounds Gastrointestinal: soft Neurological: non focal Results Result Diagram: 10/18/18 0537 10/18/18 0537 Results 24hrs Laboratory Tests Test 10/18/18 05:37 White Blood Count 10.9 H Red Blood Count 4.44 L Hemoglobin 13.6 L Hematocrit 41.9 L Mean Corpuscular Volume 94.4 Mean Corpuscular Hemoglobin 30.6 Mean Corpuscular Hemoglobin Concent 32.5 Red Cell Distribution Width 14.0 Platelet Count 145 Mean Platelet Volume 10.1 Immature Granulocytes % 0.500 H Neutrophils % 90.9 H Lymphocytes % 4.1 L Monocytes % 4.4 Eosinophils % 0.0 Basophils % 0.1 Nucleated Red Blood Cells % 0.0 Immature Granulocytes # 0.050 H Neutrophils # 9.9 H Lymphocytes # 0.5 L Monocytes # 0.5 Eosinophils # 0.0 Basophils # 0.0 Nucleated Red Blood Cells # 0.0 Sodium Level 138 Potassium Level 4.0 Chloride Level 103 Carbon Dioxide Level 27 Anion Gap 8 Blood Urea Nitrogen 35 H Creatinine 1.46 H Est Glomerular Filtrat Rate mL/min Glucose Level 107 Calcium Level 8.8 Phosphorus Level 2.8 Magnesium Level 1.9 Imaging Imaging cxr report reviewed in emr Medications Medication Current Medications Nitroglycerin (Nitroglycerin (Sl Tab) 0.4 Mg) 1 tab Q5M UP TO 3 DOSES PRN SL CHEST PAIN Last administered on 10/13/18 11:15; Admin Dose 1 TAB; Start 10/13/18 at 11:30 IV Flush (NS 3 ml) 3 ml PER PROTOCOL IV ; Start 10/13/18 at 15:00 Ondansetron HCl (Zofran Inj) 4 mg Q6H PRN IV NAUSEA/VOMITING; Start 10/13/18 at 15:00 Atorvastatin Calcium (Lipitor) 80 mg QHS PO Last administered on 10/17/18 20:50; Admin Dose 80 MG; Start 10/13/18 at 21:00 Carvedilol (Coreg) 6.25 mg BID PO Last administered on 10/18/18 09:12; Admin Dose 6.25 MG; Start 10/13/18 at 21:00 Cilostazol (Pletal) 100 mg BID PO Last administered on 10/18/18 09:11; Admin Dose 100 MG; Start 10/13/18 at 21:00 Clopidogrel Bisulfate (plaVIX) 75 mg DAILY PO Last administered on 10/18/18 09:11; Admin Dose 75 MG; Start 10/14/18 at 09:00 Levothyroxine Sodium (Synthroid) 88 mcg BEFORE BREAKFAST PO Last administered on 10/18/18 06:06; Admin Dose 88 MCG; Start 10/14/18 at 07:00 Pentoxifylline (Trental) 400 mg TID PO ; Start 10/13/18 at 21:00; Status Hold Tamsulosin HCl (Flomax) 0.4 mg HS PO Last administered on 10/17/18 20:51; Admin Dose 0.4 MG; Start 10/13/18 at 21:00 Heparin Sodium (Porcine) (Heparin (5000 Units/1ml)) 5,000 unit BID SC Last administered on 10/18/18 09:16; Admin Dose 5,000 UNIT; Start 10/14/18 at 21:00 Methylprednisolone Sodium Succinate (Solu-Medrol) 40 mg Q12 IV Last administered on 10/18/18 09:14; Admin Dose 40 MG; Start 10/15/18 at 21:00 Albuterol/ Ipratropium (Duoneb) 3 ml Q6HWA RESP THERAPY HHN Last administered on 10/18/18 14:17; Admin Dose 3 ML; Start 10/15/18 at 14:00 Arformoterol Tartrate (Brovana (Neb)) 2 ml Q12H RESP THERAPY NEB Last administered on 10/18/18 08:27; Admin Dose 2 ML; Start 10/15/18 at 12:30 Furosemide (Lasix) 20 mg DAILY PO Last administered on 10/18/18 09:11; Admin D ose 20 MG; Start 10/16/18 at 09:00 Pantoprazole (Protonix Tab) 40 mg DAILY@06 PO Last administered on 10/18/18 05:51; Admin Dose 40 MG; Start 10/17/18 at 06:00 Levofloxacin/ Dextrose 150 ml @ 100 mls/hr Q24H IVPB Last administered on 10/17/18 20:50; Admin Dose 100 MLS/HR; Start 10/17/18 at 21:00 TASNEEM ANDERSON Oct 18, 2018 16:15
== END 2018-10-18 18:09 | disposition home health service (06) | DRG 208 ==
LOC: E/R 11:08 → ICU 12:54 → TEL 10-16 21:24
PROVIDERS: ADMIT Internal Medicine; ATTEND Hospitalist
PROC: 0BH17EZ Insertion of Endotracheal Airway into Trachea, Via Natural or Artificial Opening (ICD-10-PCS; principal; 2018-10-13)
PROC: 5A1945Z Respiratory Ventilation, 24-96 Consecutive Hours (ICD-10-PCS; 2018-10-13)
DX: J44.1 Chronic obstructive pulmonary disease with (acute) exacerbation (principal); J96.01 Acute respiratory failure with hypoxia; N17.0 Acute kidney failure with tubular necrosis; I50.23 Acute on chronic systolic (congestive) heart failure; G92 Toxic encephalopathy; I13.0 Hypertensive heart and chronic kidney disease with heart failure and stage 1 through stage 4 chronic kidney disease, or unspecified chronic kidney disease; E87.1 Hypo-osmolality and hyponatremia; I16.9 Hypertensive crisis, unspecified; E11.22 Type 2 diabetes mellitus with diabetic chronic kidney disease; E87.5 Hyperkalemia; I25.5 Ischemic cardiomyopathy; N18.9 Chronic kidney disease, unspecified; I73.9 Peripheral vascular disease, unspecified; I25.10 Atherosclerotic heart disease of native coronary artery without angina pectoris; E03.9 Hypothyroidism, unspecified; F17.210 Nicotine dependence, cigarettes, uncomplicated; I25.2 Old myocardial infarction; Z79.4 Long term (current) use of insulin; Z95.5 Presence of coronary angioplasty implant and graft
CPT/HCPCS: 36600; 71045; 71250; 76775; 80048; 80051; 80053; 81003; 82803; 82962; 83036; 83605; 83735; 83880; 84100; 84145; 84155; 84300; 84443; 84484; 85025; 85378; 85610; 85730; 86704; 86709; 86803; 87040; 87081; 87340; 89190; 92610; 93005; 93306; 93970; 94002; 94003; 94640; 94660; 94664; 94770; 96365; 96375; 97116; 97162; 97165; 97530; 97535; C9113; J1644; J1815; J1940; J1956; J2543; J2920; J3370; J7030; J7040